=== PATIENT | male | born 1945 | race Caucasian/White ===

== ENCOUNTER 2021-06-09 18:01 | Observation (INO) | payer MEDICARE ==
--- NOTE | 2021-06-09 18:46 | ED ---
General Adult HPI - General Chief complaint: Syncope Stated complaint: Syncope Time Seen by Provider: 06/09/21 18:16 Source: patient Mode of arrival: wheelchair Limitations: no limitations - History of Present Illness Initial comments: Dictation was produced using [employer] dictation software. please excuse any grammatical, word or spelling errors. Chief Complaint: 76-year-old male presents to the emergency department for frequent episodes of syncope History of Present Illness: Is 76-year-old male presents emergency department for frequent episodes of syncope. Patient states that her last month he's been having multiple episodes of passing out. Patient states that physically comes from his legs and goes up and as soon as he knows it fossa the ground. Patient states he's unconscious for a couple seconds. Said several blackout episodes recently. Today he denies any headache. Yesterday he fell landing on his left side has right shoulder pain. Denies any numbness or any paresthesias. He's noticed that he had worsening swelling to his lower extremities. At the bedside he has no complaints at this time. He states he feels well. Call his primary care doctor today and was told to come to the emergency room. The ROS documented in this emergency department record has been reviewed and confirmed by me. Those systems with pertinent positive or negative responses have been documented in the HPI. All other systems are other negative and/or noncontributory. PHYSICAL EXAM: General Impression: Alert and oriented x3, not in acute distress HEENT: Normocephalic atraumatic, extra-ocular movements intact, pupils equal and reactive to light bilaterally, mucous membranes moist. Cardiovascular: Heart regular rate and rhythm Chest: Able to complete full sentences, no retractions, no tachypnea Abdomen: abdomen soft, non-tender, non-distended, no organomegaly Musculoskeletal: Pulses present and equal in all extremities, 2+ pitting edema to the bilateral lower extremities Motor: no focal deficits noted Neurological: CN II-XII grossly intact, no focal motor or sensory deficits noted Skin: Intact with no visualized rashes Psych: Normal affect and mood ED course: 76-year-old male presents emergency department for frequent syncopal episodes. Patient has a history of heart failure coronary artery disease. He r ecently had a stress test that was unremarkable according to his at the bedside. Patient is asymptomatic at this time. Vital signs are unremarkable. Laboratory evaluation obtained. CBC, metabolic panel is unremarkable. Cardiac enzymes negative. Brain natruretic peptide is normal. Computed tomography scan of the head and C-spine shows no acute processes. Shoulder x-rays negative. Patient reevaluated at the bedside at 7:54 PM found to be in stable medical condition. Disposition options were discussed with the patient. Given his age and comorbidities believe patient will benefit from observation admission for cardiac monitoring and cardiology consultation. Case discussed with Dr. Jett Tyson is went accept patient's care. EKG interpretation: Ventricular rate 72, sinus rhythm, DE interval 180, QS 162, QTc 457. No DE prolongation, no QTC prolongation, no ST or T-wave changes noted. Left bundle branch block. Overall this EKG is nonspecific. - Related Data Home Medications Medication Instructions Recorded Confirmed Fluorouracil [Efudex] 1 applic TOPICAL HS 06/09/21 06/09/21 Allergies Allergy/AdvReac Type Severity Reaction Status Date / Time No Known Allergies Allergy Verified 06/09/21 19:21 Review of Systems ROS Statement: Those systems with pertinent positive or pertinent negative responses have been documented in the HPI. ROS Other: All systems not noted in ROS Statement are negative. Past Medical History Past Medical History: Cancer Additional Past Medical History / Comment(s): skin cancer History of Any Multi-Drug Resistant Organisms: None Reported Past Surgical History: No Surgical Hx Reported Past Psychological History: No Psychological Hx Reported Smoking Status: Never smoker Past Alcohol Use History: None Reported Past Drug Use History: None Reported General Exam Limitations: no limitations Course Vital Signs 06/09/21 06/09/21 18:06 19:25 Temperature 98.4 F Pulse Rate 80 68 Respiratory 20 18 Rate Blood Pressure 175/93 148/87 O2 Sat by Pulse 96 97 Oximetry Medical Decision Making - Lab Data Result diagrams: 06/09/21 18:49 06/09/21 18:49 Lab Results 06/09/21 06/09/21 06/09/21 Range/Units 18:49 18:49 18:49 WBC 7.2 (3.8-10.6) k/uL RBC 5.34 (4.30-5.90) m/uL Hgb 15.7 (13.0-17.5) gm/dL Hct 47.0 (39.0-53.0) % MCV 88.0 (80.0-100.0) fL MCH 29.5 (25.0-35.0) pg MCHC 33.5 (31.0-37.0) g/dL RDW 13.9 (11.5-15.5) % Plt Count 228 (150-450) k/uL MPV 7.5 Neutrophils % 50 % Lymphocytes % 38 % Monocytes % 7 % Eosinophils % 1 % Basophils % 0 % Neutrophils # 3.6 (1.3-7.7) k/uL Lymphocytes # 2.7 (1.0-4.8) k/uL Monocytes # 0.5 (0-1.0) k/uL Eosinophils # 0.1 (0-0.7) k/uL Basophils # 0.0 (0-0.2) k/uL Sodium 138 (137-145) mmol/L Potassium 4.6 (3.5-5.1) mmol/L Chloride 106 (98-107) mmol/L Carbon Dioxide 25 (22-30) mmol/L Anion Gap 7 mmol/L BUN 21 H (9-20) mg/dL Creatinine 0.99 (0.66-1.25) mg/dL Est GFR (CKD-EPI)AfAm 85 (>60 ml/min/1.73 sqM) Est GFR (CKD-EPI)NonAf 73 (>60 ml/min/1.73 sqM) Glucose 101 H (74-99) mg/dL Calcium 8.7 (8.4-10.2) mg/dL Magnesium 2.2 (1.6-2.3) mg/dL Troponin I <0.012 (0.000-0.034) ng/mL NT-Pro-B Natriuret Pep pg/mL 06/09/21 Range/Units 18:49 WBC (3.8-10.6) k/uL RBC (4.30-5.90) m/uL Hgb (13.0-17.5) gm/dL Hct (39.0-53.0) % MCV (80.0-100.0) fL MCH (25.0-35.0) pg MCHC (31.0-37.0) g/dL RDW (11.5-15.5) % Plt Count (150-450) k/uL MPV Neutrophils % % Lymphocytes % % Monocytes % % Eosinophils % % Basophils % % Neutrophils # (1.3-7.7) k/uL Lymphocytes # (1.0-4.8) k/uL Monocytes # (0-1.0) k/uL Eosinophils # (0-0.7) k/uL Basophils # (0-0.2) k/uL Sodium (137-145) mmol/L Potassium (3.5-5.1) mmol/L Chloride (98-107) mmol/L Carbon Dioxide (22-30) mmol/L Anion Gap mmol/L BUN (9-20) mg/dL Creatinine (0.66-1.25) mg/dL Est GFR (CKD-EPI)AfAm (>60 ml/min/1.73 sqM) Est GFR (CKD-EPI)NonAf (>60 ml/min/1.73 sqM) Glucose (74-99) mg/dL Calcium (8.4-10.2) mg/dL Magnesium (1.6-2.3) mg/dL Troponin I (0.000-0.034) ng/mL NT-Pro-B Natriuret Pep 380 pg/mL Disposition Clinical Impression: Syncope Disposition: ADMITTED IP TO THIS HOSP Condition: Fair Referrals: Jett Tyson DO [Primary Care Provider] - 1-2 days
[2021-06-09 19:02] LABS: Basophils % (A) 0 %; Eosinophils # (A) 0.1 k/uL (0-0.7); Eosinophils % (A) 1 %; HGB 15.7 gm/dL (13.0-17.5); Lymphocytes # (A) 2.7 k/uL (1.0-4.8); Lymphocytes % (A) 38 %; MCH 29.5 pg (25.0-35.0); MCHC 33.5 g/dL (31.0-37.0); Mean Platelet Volume 7.5; Monocytes # (A) 0.5 k/uL (0-1.0); Monocytes % (A) 7 %; Neutrophils # (A) 3.6 k/uL (1.3-7.7); Neutrophils % (A) 50 %; Platelet Count 228 k/uL (150-450); RBC 5.34 m/uL (4.30-5.90); RDW 13.9 % (11.5-15.5); WBC 7.2 k/uL (3.8-10.6)
--- NOTE | 2021-06-09 19:04 | XR ---
Result: Clinical History: Pain. Comparison: None available. Technique: 3 views of the right shoulder. Findings: The bone mineralization is appropriate for age. No acute fracture or dislocation is seen. 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 The visualized lung is clear. Impression: No acute osseous abnormality.
[2021-06-09 19:11] LABS: Calcium 8.7 mg/dL (8.4-10.2); Magnesium 2.2 mg/dL (1.6-2.3); Potassium 4.6 mmol/L (3.5-5.1)
--- NOTE | 2021-06-09 19:29 | CT ---
EXAMINATION TYPE: CT brain misty neal DATE OF EXAM: 06/09/2021 COMPARISON: None available HISTORY: frequent falls CT DLP: 1446.3 mGycm Automated exposure control for dose reduction was used. TECHNIQUE: CT scan of the head and cervical spine are performed without contrast. FINDINGS: There is no acute intracranial hemorrhage, mass effect, or midline shift identified. The re is mild white matter disease and parenchymal volume loss. The ventricles and sulci are within norm al limits in size. The globes are intact and the visualized sinuses are clear. Cervical spine is visualized in its entirety from C1 through upper thoracic levels and demonstrates s atisfactory alignment without evidence of acute fracture or dislocation. There is multilevel moderate to severe disc degenerative changes with C7 superior endplate compression deformity. Prevertebral so ft tissue appears within normal limits. The C1-C2 articulation is unremarkable. IMPRESSION: No acute intracranial cervical spine abnormality. Senescent changes and cervical spondylosis.
[2021-06-09] MEDS ORDERED: NALOXONE 0.4 MG/ML 1 ML VIAL IV PRN (19:52)
[2021-06-09] MEDS ORDERED: SODIUM CHLORIDE 0.9% 1,000 ML IV SCH (20:00)
[2021-06-10] MEDS ORDERED: FUROSEMIDE 10 MG/ML 2 ML VIAL IV STA (08:49)
--- NOTE | 2021-06-10 09:37 | ECHOF ---
Referral Reason:syncope MEASUREMENTS -------- HEIGHT: 177.8 cm WEIGHT: 111.1 kg BP: RVIDd: 2.8 cm (< 3.3) IVSd: 1.6 cm (0.6 - 1.1) LVIDd: 4.4 cm (3.9 - 5.3) LVPWd: 1.7 cm (0.6 - 1.1) IVSs: 2.2 cm LVIDs: 2.5 cm LVPWs: 2.6 cm Ao Diam: 3.4 cm (2.0 - 3.7) AV Cusp: 1.8 cm (1.5 - 2.6) LA Diam: 3.0 cm (2.7 - 3.8) MV EXCURSION: 15.618 mm (> 18.000) MV EF SLOPE: 61 mm/s (70 - 150) EPSS: 0.6 cm MV E Baldemar: 0.91 m/s MV DecT: 187 ms MV A Baldemar: 0.54 m/s MV E/A Ratio: 1.70 RAP: 5.00 mmHg RVSP: 15.06 mmHg FINDINGS -------- This was a technically difficult study with suboptimal views. The left ventricular size is normal. There is moderate concentric left ventricular hypertrophy. O verall left ventricular systolic function is mildly impaired with, an EF between 45 - 50 %. The right ventricle is normal in size. The left atrial size is normal. The right atrial size is normal. xx ml of Lumason was utilized for enhancement of images. Aortic valve is trileaflet and is mildly thickened. The mitral valve is normal. There is trace mitral regurgitation. The tricuspid valve appears structurally normal. Mild tricuspid regurgitation present. Right vent ricular systolic pressure is normal at < 35 mmHg. There is no pulmonic regurgitation present. The aortic root size is normal. IVC Not well visulized. There is no pericardial effusion. CONCLUSIONS -------- 1. The left ventricular size is normal. 2. There is moderate concentric left ventricular hypertrophy. 3. Overall left ventricular systolic function is mildly impaired with, an EF between 45 - 50 %. 4. Aortic valve is trileaflet and is mildly thickened. 5. There is trace mitral regurgitation. 6. Mild tricuspid regurgitation present. 7. There is no pericardial effusion. PHILANTHROPY OFFICER: Tania Sanchez RUST
--- NOTE | 2021-06-10 10:35 | P.CRDCN ---
History of Present Illness Consult date: 06/10/21 History of present illness: HISTORY OF PRESENT ILLNESS: This is a 76-year-old male with a past medical history significant for hyperlipidemia and chronic lower extremity edema. Patient follows in the office with Dr. Millard. We have been asked to see the patient in consultation for syncope. Patient examined at the bedside. Patient presented to the hospital secondary to a few near syncopal/syncopal episodes at home. Patient reports he has had a few episodes where he thinks he is about to pass out. He is unsure if he actually lost consciousness or not. He denied any chest pain or pressure. Denies SOB. Currently denies dizziness or lightheadedness. * EKG reveals sinus mechanism with left bundle branch block * Laboratory data: WBC 7.2. Hemoglobin 15.7. Daily count 228. Sodium 138. Potassium 4.6. BUN 21. Creatinine 0.99. Troponin negative 1. ProBNP 390. * Current home cardiac medications include none * Echocardiogram obtained revealed ejection fraction 45-50%, trace MR, mild TR. Previous echo in 2018 revealed ejection fraction of 50% with mild TR * Patient underwent Lexiscan stress test in December 2017 which was negative for ischemia REVIEW OF SYSTEMS: At the time of my exam: CONSTITUTIONAL: Denies fever or chills. HEENT: Denies blurred vision, vision changes, or eye pain. Denies hemoptysis CARDIOVASCULAR: Denies chest pain. Denies orthopnea. Denies PND. Denies palpitations RESPIRATORY: Denies shortness of breath. GASTROINTESTINAL: Denies abdominal pain. Denies nausea or vomiting. HEMATOLOGIC: Denies bleeding disorders. GENITOURINARY: Denies any blood in urine. SKIN: Denies pruitis. Denies rash. PHYSICAL EXAM: VITAL SIGNS: Reviewed. GENERAL: Well-developed in no acute distress. HEENT: Head is normocephalic. Pupils are equal, round. Sclerae anicteric. Mucous membranes of the mouth are moist. Neck supple. No JVD or thyromegaly LUNGS: Respirations even and unlabored. Lungs essentially clear to auscultation bilaterally. HEART: Regular rate and rhythm. S1 and S2 heard. ABDOMEN: Soft. Nondistended. Nontender. EXTREMITIES: Normal range of motion. No clubbing or cyanosis. Peripheral pulses intact. 2-3+ lower extremity edema NEUROLOGIC: Awake and alert. Oriented x 3. ASSESSMENT: Syncope/near syncope History of hyperlipidemia, not on statin therapy Chronic lower extremity edema PLAN: 2-D echo obtained and reviewed Give 1 dose of IV Lasix 20 mg for lower extremity edema Check TSH Orthostatics checked and were negative Patient to receive 30 day event monitor Patient may be discharged home today and follow up outpatient with Dr. Millard We will sign off. Please reconsult if needed. Nurse practitioner note has been reviewed by physician. Signing provider agrees with the documented findings, assessment, and plan of care. Past Medical History Past Medical History: Cancer Additional Past Medical History / Comment(s): Skin cancer on face pt states that he uses a cream History of Any Multi-Drug Resistant Organisms: None Reported Past Surgical History: No Surgical Hx Reported Past Psychological History: No Psychological Hx Reported Smoking Status: Never smoker Past Alcohol Use History: None Reported Past Drug Use History: None Reported Medications and Allergies Home Medications Medication Instructions Recorded Confirmed Type Fluorouracil [Efudex] 1 applic TOPICAL HS 06/09/21 06/09/21 History Allergies Allergy/AdvReac Type Severity Reaction Status Date / Time No Known Allergies Allergy Verified 06/09/21 19:21 Physical Exam Vitals: Vital Signs Temp Pulse Pulse Pulse Pulse Resp BP 06/10/21 07:00 97.6 F 56 L 77 91 20 06/10/21 02:00 72 16 06/10/21 00:06 98.0 F 63 15 06/09/21 21:42 97.9 F 72 16 06/09/21 21:00 97.9 F 72 18 171/80 06/09/21 19:25 68 18 148/87 06/09/21 18:06 98.4 F 80 20 175/93 BP BP BP Pulse Ox 06/10/21 07:00 176/77 162/89 173/82 97 06/10/21 02:00 06/10/21 00:06 172/85 98 06/09/21 21:42 176/85 98 06/09/21 21:00 96 06/09/21 19:25 97 06/09/21 18:06 96 Intake and Output 06/09/21 06/10/21 06/10/21 22:59 06:59 14:59 Other: Voiding Method Toilet Weight 111.13 kg 111.13 kg Results 06/09/21 18:49 06/09/21 18:49 Cardiac Enzymes 06/09/21 Range/Units 18:49 Troponin I <0.012 (0.000-0.034) ng/mL CBC 06/09/21 Range/Units 18:49 WBC 7.2 (3.8-10.6) k/uL RBC 5.34 (4.30-5.90) m/uL Hgb 15.7 (13.0-17.5) gm/dL Hct 47.0 (39.0-53.0) % Plt Count 228 (150-450) k/uL Comprehensive Metabolic Panel 06/09/21 Range/Units 18:49 Sodium 138 (137-145) mmol/L Potassium 4.6 (3.5-5.1) mmol/L Chloride 106 (98-107) mmol/L Carbon Dioxide 25 (22-30) mmol/L BUN 21 H (9-20) mg/dL Creatinine 0.99 (0.66-1.25) mg/dL Glucose 101 H (74-99) mg/dL Calcium 8.7 (8.4-10.2) mg/dL Current Medications Generic Name Dose Route Start Last Admin Trade Name Freq PRN Reason Stop Dose Admin Sodium Chloride 1,000 mls @ 20 mls/hr 06/09/21 20:00 06/09/21 21:07 Saline 0.9% IV Not Given .Q24H JENNIE Naloxone HCl 0.2 mg 06/09/21 19:52 Naloxone 0.4 Mg/Ml 1 Ml Vial IV Q2M PRN Opioid Reversal Intake and Output 06/09/21 06/10/21 06/10/21 22:59 06:59 14:59 Other: Voiding Method Toilet Weight 111.13 kg 111.13 kg 06/09/21 18:49 06/09/21 18:49
[2021-06-10 14:30] VITALS: BP 152/82; PULSE 65; RESP 15; TEMP 97.9
== END 2021-06-10 16:11 | disposition home health service (06) ==
LOC: EC 18:01 → 6NMEDSUR 19:52
PROVIDERS: ADMIT Family Medicine; ATTEND Family Medicine
DX: R55 Syncope and collapse (principal); M19.011 Primary osteoarthritis, right shoulder; I25.10 Atherosclerotic heart disease of native coronary artery without angina pectoris; R60.0 Localized edema; I44.7 Left bundle-branch block, unspecified; M47.812 Spondylosis without myelopathy or radiculopathy, cervical region; E78.5 Hyperlipidemia, unspecified; I07.1 Rheumatic tricuspid insufficiency; Z79.899 Other long term (current) drug therapy; Z86.79 Personal history of other diseases of the circulatory system; Z85.828 Personal history of other malignant neoplasm of skin; W19.XXXA Unspecified fall, initial encounter; Y92.009 Unspecified place in unspecified non-institutional (private) residence as the place of occurrence of the external cause
CPT/HCPCS: 96374; 99285; 36415; 93005; 93270; 83880; 80048; 84443; 83735; 84484; 85025; 73030; 72125; 70450; G0378 ×2; C8929; J1940; Q9950; 93306

== ENCOUNTER 2021-06-20 12:56 | Day surgery (SDC) | payer MEDICARE ==
[2021-06-16 13:44] VITALS: BMI 33.2
[~2021-06-20 12:56] MED LIST: ceFAZolin 1 GM in SODIUM CHLORIDE 0.9% IRRIG BTL 250 ML IRRIGATION PRN
[2021-06-20] MEDS ORDERED: SODIUM CHLORIDE 0.9% 500 ML 500 ML IV ONE ×2 (13:05→19:56)
[2021-06-20] MEDS ORDERED: VANCOMYCIN 1,000 MG in SODIUM CHLORIDE 0.9% 250 ML IVPB STA (14:39)
[2021-06-20] MEDS ORDERED: LIDOCAINE 1% INJ 10MG/ML (20 ML MDV) ONE (17:38)
[2021-06-20] MEDS ORDERED: PROPOFOL 10 MG/ML 20 ML VIAL IV ONE (17:45)
[2021-06-20] MEDS ORDERED: HYDROmorphone (PF) 1 MG/ML ONE (17:45)
[2021-06-20] MEDS ORDERED: MIDAZOLAM 2 MG/2 ML VIAL ONE (17:45)
[2021-06-20] MEDS ORDERED: IOPAMIDOL-370 50ML BTL INJ ONE ×2 (18:08→19:55)
[2021-06-20] MEDS ORDERED: LIDOCAINE 1% INJ 10MG/ML (20 ML MDV) SQ ONE ×3 (18:39→19:00)
[2021-06-20] MEDS ORDERED: ACETAMINOPHEN TAB 325 MG TAB PO PRN (20:10)
--- NOTE | 2021-06-20 20:10 | P.EPPROC ---
- EP Procedure Note Electrophysiology Procedure Note: Diagnosis Bradycardia, standard pacemaker will result in RV pacing >40% Intermittent heart block Mild cardio myopathy Underlying left bundle branch block QRS width greater than 155 ms Procedure LV/ biventricular pacemaker implantation Details Patient was brought to the EP lab in a fasting state. Written informed consent was obtained prior to the procedure. Conscious sedation provided by anesthesia team IV antibiotics administered. Local anesthesia administered. A 4 cm incision made in the pectoral area. Subfascial pocket made. Venous access obtained Venous sheaths placed. Leads placed in the right heart Atrial lead position the right atrial appendage. [employer] coding specialist active fix Pacing threshold 0.8 V at 0.4 ms, P waves 4.7 mV, pacing impedance 590 ohms RV lead position in the RV apex. [employer] coding specialist active fix Pacing threshold 0.4 V at 0.4 ms, R waves 11 mV and pacing impedance 810 ohms 10 V test negative LV lead positioned in the LV vein. Standard [facility] quadripolar lead Pacing threshold 0.7 V at 0.4 ms, and 3-P4 pacing baseline and 30 ohms Biventricular pacemaker device connected to the leads and placed in the subfascial pocket [facility] [facility] [employer] MP Patient tolerated the procedure well without acute complications Pacemaker programmed to M3-P4 with an LV offset of 40 ms [employer]
--- NOTE | 2021-06-20 20:16 | P.PRLE ---
RE: John Silva Dear Jett Delcid Ricardo underwent a biventricular pacemaker for intermittent AV block associated with syncope He has an underlying left bundle branch block and mild cardio myopathy He will continue all his current medications and will follow with you as previously scheduled Thank you for entrusting me with the care of the patient Warm regards Sincerely Greg Cartagena
--- NOTE | 2021-06-20 20:17 | P.EPPROC ---
- EP Procedure Note Electrophysiology Procedure Note: Left upper extremity venogram TCC IV dye injected in the left arm Patent left subclavian and axillary vein Plan Proceed with biventricular pacemaker implantation
[2021-06-20] MEDS ORDERED: ACETAMINOPHEN IV (For NPO) 1,000 MG in EMPTY BAG 1 BAG IVPB ONE (21:30)
[2021-06-20] MEDS: SODIUM CHLORIDE 0.9% 1,000 ML IV SCH ×4 (22:11→23:54)
--- NOTE | 2021-06-21 07:59 | XR ---
EXAMINATION TYPE: XR chest 2V DATE OF EXAM: 06/21/2021 COMPARISON: NONE HISTORY: Pacemaker insertion. TECHNIQUE: Frontal and lateral views of the chest are obtained. FINDINGS: New triple lead pacemaker with leads projecting over the right atrium, right ventricle, and coronary sinus. There is no focal air space opacity, pleural effusion, or pneumothorax seen. The c ardiac silhouette size is within normal limits. The osseous structures are intact. IMPRESSION: As above
[2021-06-21 08:01] VITALS: RESP 18
[2021-06-21] MEDS ORDERED: ATORVASTATIN 20 MG TAB PO SCH (09:00)
[2021-06-21] MEDS ORDERED: FUROSEMIDE 20 MG TAB PO SCH (09:00)
[2021-06-21 12:54] VITALS: BP 148/79; PULSE 71; TEMP 97.5
--- NOTE | 2021-06-21 15:54 | P.DS ---
Providers Attending physician: Greg Cartagena Primary care physician: [facility] Course: Patient ambulating around the room No chest discomfort dizziness or lightheadedness The pacemaker site is healed well No hematoma no soakage Lungs are clear no rhonchi no crackles Normal heart sounds no S3 gallop Extremities warm No JVD Afebrile 97.5F, pulse rate in the 60s and 70s, blood pressure 146/73 mmHg Impression Syncope secondary to paroxysmal AV block Underlying mild cardio myopathy with a left bundle branch block pattern on ECG Status post biventricular pacemaker implantation yesterday Device is functioning normally Chest x-ray is within normal limits Patient received IV antibiotics Plan Discharge home and follow-up with Dr. Millard in a week in the device clinic Plan - Discharge Summary Discharge Rx Participant: No New Discharge Prescriptions: No Action Atorvastatin [Lipitor] 20 mg PO DAILY Furosemide [Lasix] 20 mg PO DAILY Discharge Medication List Atorvastatin [Lipitor] 20 mg PO DAILY 06/16/21 [History] Furosemide [Lasix] 20 mg PO DAILY 06/16/21 [History] Follow up Appointment(s)/Referral(s): James Millard MD [STAFF PHYSICIAN] - 1 Week (Device Clinic appointment 06/27 @ 10:30 am ) Patient Instructions/Handouts: Heart Failure (GEN), Pacemaker (GEN) Activity/Diet/Wound Care/Special Instructions: wear sling today 06/21/21 take off tomorrow but wear to bed for next 7 days, keep dressing dry for next 7 days if bathing must cover dressing with plastic. do not raise arm up above shoulder, head follow up as directed Discharge Disposition: HOME SELF-CARE
== END 2021-06-21 15:00 | disposition home or self-care (01) ==
LOC: CATHEP 12:56 → 6NMEDSUR 20:40 → CATHEP 06-21 15:00
PROVIDERS: ATTEND Internal Medicine Clinical Cardiac Electrophysiology
DX: I44.2 Atrioventricular block, complete (principal); R00.1 Bradycardia, unspecified; I42.8 Other cardiomyopathies; Z79.899 Other long term (current) drug therapy; R55 Syncope and collapse; R60.0 Localized edema; Z20.822 Contact with and (suspected) exposure to COVID-19; E78.2 Mixed hyperlipidemia; I44.7 Left bundle-branch block, unspecified; E78.5 Hyperlipidemia, unspecified; Z82.49 Family history of ischemic heart disease and other diseases of the circulatory system; Z98.890 Other specified postprocedural states; Z87.891 Personal history of nicotine dependence; Z85.828 Personal history of other malignant neoplasm of skin
CPT/HCPCS: 33225; 33208; 87635; 71046; C1769 ×4; C1892 ×2; C1730; C1887; C1898; C1900; C2621; J2250; J3370; J0690 ×2; J2001; J1170; J0131; J2704; Q9967

== ENCOUNTER 2022-08-19 18:20 | Inpatient (IN) | payer MEDICARE ==
[2022-08-19] MEDS ORDERED: SODIUM CHLORIDE 0.9% 1,000 ML IV ONE (18:40)
--- NOTE | 2022-08-19 18:47 | ED ---
General Adult HPI - General Stated complaint: Fall Time Seen by Provider: 08/19/22 18:23 Source: RN notes reviewed - History of Present Illness Initial comments: 77-year-old male with a past medical history significant fo hyperlipidemia presents to the emergency department via EMS with a chief complaint of fall. Patient reports that he fell 3 days ago and did not hit his head or lose consciousness. He reports that today he was getting up from his reclining chair in order to get the mail when his left hip was weak and he fell forward onto his face. He denies any loss of consciousness. He denies any anticoagulant use. Patient reports increased weakness. He denies any dizziness, lightheaded, headache, vision changes, vision loss, chest pain, shortness of breath, nausea, vomiting. He does report that he has had loose stools for the last few days however he denies any blood in them. He reports that the swelling in his feet has actually improved. EMS reports that he was found by the email marketing specialist as he heard a loud thud as he approached the door.. EMS reports that the patient has been crawling around for the past 5 days and attempt to take care of his who also has fallen. Per EMS the patient seemed more confused than normal there unsure of his baseline. It is unknown of his last known well. Patient is alert and oriented 2-3. - Related Data Home Medications Medication Instructions Recorded Confirmed Atorvastatin [Lipitor] 20 mg PO DAILY 06/16/21 08/19/22 Cephalexin [Keflex] 1,000 mg PO Q12HR 08/19/22 08/19/22 Furosemide [Lasix] 40 mg PO BID 08/19/22 08/19/22 Metoprolol Succinate (ER) [Toprol 25 mg PO DAILY 08/19/22 08/19/22 Xl] SILVER sulfADIAZINE Cream 1 applic TOPICAL DAILY 08/19/22 08/19/22 [Silvadene 1% Cream] Valsartan [Diovan] 80 mg PO DAILY 08/19/22 08/19/22 Allergies Allergy/AdvReac Type Severity Reaction Status Date / Time No Known Allergies Allergy Verified 08/19/22 20:25 Review of Systems ROS Statement: Those systems with pertinent positive or pertinent negative responses have been documented in the HPI. ROS Other: All systems not noted in ROS Statement are negative. Past Medical History Past Medical History: Cancer Additional Past Medical History / Comment(s): Skin cancer on face. Swelling in feet, calves and knees. History of Any Multi-Drug Resistant Organisms: None Reported Past Surgical History: Joint Replacement Additional Past Surgical History / Comment(s): right hip replacement, cataracts removed. Past Anesthesia/Blood Transfusion Reactions: No Reported Reaction Smoking Status: Former smoker - Past Family History Mother Family Medical History: No Reported History General Exam - General Exam Comments Initial Comments: General: Alert, in no acute distress Head: atraumatic normocephalic. Eyes PERRL, EOMI intact, mucous membranes moist Respiratory: Lungs clear to auscultation bilaterally Cardiovascular: Heart rate regular rate and rhythm Abdominal: Soft without guarding or rebound Extremities: Normal inspection with full range of motion and normal capillary re fill Neuroogic: alert and oriented 2-3, CN II-XII intact, Skin: warm dry and intact with normal color Course Vital Signs 08/19/22 08/19/22 08/20/22 20:52 22:59 00:02 Pulse Rate 63 62 60 Respiratory 18 18 18 Rate Blood Pressure 129/59 98/59 95/71 O2 Sat by Pulse 100 100 100 Oximetry - Reevaluation(s) Reevaluation #1: 08/19/22 18:46 Initial history and physical exam performed Reevaluation #2: 08/19/22 20:27 Notified of critical lab result. Troponin 0.134 Reevaluation #3: 08/19/22 22:[address] Russ, [facility] who agrees and accepts the patient for admission EKG Findings - EKG Comments: EKG Findings:: I interpreted the following: EKG performed at 19:09 rate 60 bpm and his electronically atrial and ventricularly paced. [place] interval 288, QRS duration 153, QT/QTc 518/518 Medical Decision Making - Medical Decision Making Was pt. sent in by a medical professional or institution (, PA, SUPERVISOR SHEARING, urgent care, hospital, or retirement...) When possible be specific @ -[No] Did you speak to anyone other than the patient for history (EMS, parent, family, police, friend...)? What history was obtained from this source @ -[No] Did you review nursing and triage notes (agree or disagree)? Why? @ -[I reviewed and agree with nursing and triage notes] Were old charts reviewed (outside hosp., previous admission, EMS record, old EKG, old radiological studies, urgent care reports/EKG's, retirement records)? Report findings @ -[No old charts were reviewed] Differential Diagnosis (chest pain, altered mental status, abdominal pain women, abdominal pain men, vaginal bleeding, weakness, fever, dyspnea, syncope, h eadache, dizziness, GI bleed, back pain, seizure, CVA, palpatations, mental health, musculoskeletal)? @ -[not applicable] EKG interpreted by me (3pts min.). @ -[As above] X-rays interpreted by me (1pt min.). @ -[None done] CT interpreted by me (1pt min.). @ -[None done] U/S interpreted by me (1pt. min.). @ -[None done] What testing was considered but not performed or refused? (CT, X-rays, U/S, labs)? Why? @ -[None] What meds were considered but not given or refused? Why? @ -[None] Did you discuss the management of the patient with other professionals (professionals i.e. , PA, SUPERVISOR SHEARING, lab, RT, psych nurse, social services specialist, prosthetic dentist, teacher, sergeant of officers, piano case maker)? Give summary @ -[No] Was smoking cessation discussed for >3mins.? @ -[No] Was critical care preformed (if so, how long)? @ -[No] Were there social determinants of health that impacted care today? How? (Homelessness, low income, unemployed, alcoholism, drug addiction, transportation, low edu. Level, literacy, decrease access to med. care, intermediate, rehab)? @ -[No] Was there de-escalation of care discussed even if they declined (Discuss DNR or withdrawal of care, Hospice)? DNR status @ -[No] What co-morbidities impacted this encounter? (DM, HTN, Smoking, COPD, CAD, Ca ncer, CVA, ARF, Chemo, Hep., AIDS, mental health diagnosis, sleep apnea, morbid obesity)? @ -[None] Was patient admitted / discharged? Hospital course, mention meds given and route, prescriptions, significant lab abnormalities, going to OR and other pertinent info. @ -Admission. This is a 77-year-old male who presents to the [facility] department with frequent falls. Patient had a thorough history and physical exam performed while in the ED. Heart rate regular rate and rhythm, lungs clear to auscultation bilaterally abdomen soft nontender patient is alert and oriented 3. No focal neuro deficits noted upon exam. Patient had lab work and and imaging performed which revealed: WBC 6.2, hemoglobin 11.2 chemistry unremarkable. 67, creatinine 3.01 creatinine kinase 1071, troponin 0.119 BNP 2860 urinalysis negative Patient had imaging performed which was all negative. I discussed the results in detail with the patient verbalized understanding and all questions were addressed. He is agreeable with the plan for admission. Case discussed with [facility] who agrees and accepts the patient for further observation. Case discussed with Dr. Marcano who agrees with POC. Undiagnosed new problem with uncertain prognosis? @ -[No] Drug Therapy requiring intensive monitoring for toxicity (Heparin, Nitro, Insulin, Cardizem)? @ -[No] Were any procedures done? @ -[No] Diagnosis/symptom? @ -Fall -Rhabdomyolysis - Elevated troponin - Acute kidney injury Acute, or Chronic, or Acute on Chronic? @ -Acute Uncomplicated (without systemic symptoms) or Complicated (systemic symptoms)? @ -Unomplicated Side effects of treatment? @ -[No] Exacerbation, Progression, or Severe Exacerbation? @ -[No] Poses a threat to life or bodily function? How? (Chest pain, [place], [place], pneumonia, PE, COPD, DKA, ARF, appy, cholecystitis, CVA, Diverticulitis, Homicidal, Suicidal, threat to staff... and all critical care pts) @ -low likelihood - Lab Data Result diagrams: 08/21/22 07:21 08/22/22 10:40 Lab Results 08/19/22 08/19/22 08/19/22 Range/Units 18:47 18:47 18:47 WBC 7.6 (3.8-10.6) k/uL RBC 4.21 L (4.30-5.90) m/uL Hgb 12.0 L (13.0-17.5) gm/dL Hct 35.3 L (39.0-53.0) % MCV 83.8 (80.0-100.0) fL MCH 28.5 (25.0-35.0) pg MCHC 34.0 (31.0-37.0) g/dL RDW 13.5 (11.5-15.5) % Plt Count 203 (150-450) k/uL MPV 8.5 Neutrophils % 67 % Lymphocytes % 23 % Monocytes % 8 % Eosinophils % 1 % Basophils % 0 % Neutrophils # 5.1 (1.3-7.7) k/uL Lymphocytes # 1.7 (1.0-4.8) k/uL Monocytes # 0.6 (0-1.0) k/uL Eosinophils # 0.1 (0-0.7) k/uL Basophils # 0.0 (0-0.2) k/uL PT 10.3 (9.0-12.0) sec INR 1.0 (<1.2) APTT 20.9 L (22.0-30.0) sec Sodium 139 (137-145) mmol/L Potassium 4.0 (3.5-5.1) mmol/L Chloride 103 (98-107) mmol/L Carbon Dioxide 23 (22-30) mmol/L Anion Gap 13 mmol/L BUN 78 H (9-20) mg/dL Creatinine 3.69 H (0.66-1.25) mg/dL Est GFR (CKD-EPI)AfAm 17 (>60 ml/min/1.73 sqM) Est GFR (CKD-EPI)NonAf 15 (>60 ml/min/1.73 sqM) Glucose 113 H (74-99) mg/dL POC Glucose (mg/dL) (70-110) mg/dL POC Glu Mechanical Intern ID Calcium 8.4 (8.4-10.2) mg/dL Total Bilirubin 2.8 H (0.2-1.3) mg/dL AST 109 H (17-59) U/L ALT 27 (4-49) U/L Alkaline Phosphatase 110 (38-126) U/L Creatine Kinase (55-170) U/L Troponin I (0.000-0.034) ng/mL Total Protein 6.3 (6.3-8.2) g/dL Albumin 3.3 L (3.5-5.0) g/dL Influenza Type A (PCR) (Not Detectd) Influenza Type B (PCR) (Not Detectd) RSV (PCR) (Not Detectd) SARS-CoV-2 (PCR) (Not Detectd) 08/19/22 08/19/22 08/19/22 Range/Units 18:47 18:47 18:57 WBC (3.8-10.6) k/uL RBC (4.30-5.90) m/uL Hgb (13.0-17.5) gm/dL Hct (39.0-53.0) % MCV (80.0-100.0) fL MCH (25.0-35.0) pg MCHC (31.0-37.0) g/dL RDW (11.5-15.5) % Plt Count (150-450) k/uL MPV Neutrophils % % Lymphocytes % % Monocytes % % Eosinophils % % Basophils % % Neutrophils # (1.3-7.7) k/uL Lymphocytes # (1.0-4.8) k/uL Monocytes # (0-1.0) k/uL Eosinophils # (0-0.7) k/uL Basophils # (0-0.2) k/uL PT (9.0-12.0) sec INR (<1.2) APTT (22.0-30.0) sec Sodium (137-145) mmol/L Potassium (3.5-5.1) mmol/L Chloride (98-107) mmol/L Carbon Dioxide (22-30) mmol/L Anion Gap mmol/L BUN (9-20) mg/dL Creatinine (0.66-1.25) mg/dL Est GFR (CKD-EPI)AfAm (>60 ml/min/1.73 sqM) Est GFR (CKD-EPI)NonAf (>60 ml/min/1.73 sqM) Glucose (74-99) mg/dL POC Glucose (mg/dL) 127 H (70-110) mg/dL POC Glu Mechanical Intern ID Macias Scot Calcium (8.4-10.2) mg/dL Total Bilirubin (0.2-1.3) mg/dL AST (17-59) U/L ALT (4-49) U/L Alkaline Phosphatase (38-126) U/L Creatine Kinase (55-170) U/L Troponin I 0.134 H* (0.000-0.034) ng/mL Total Protein (6.3-8.2) g/dL Albumin (3.5-5.0) g/dL Influenza Type A (PCR) Not Detected (Not Detectd) Influenza Type B (PCR) Not Detected (Not Detectd) RSV (PCR) Not Detected (Not Detectd) SARS-CoV-2 (PCR) Not Detected (Not Detectd) 08/19/22 08/19/22 Range/Units 21:07 21:07 WBC (3.8-10.6) k/uL RBC (4.30-5.90) m/uL Hgb (13.0-17.5) gm/dL Hct (39.0-53.0) % MCV (80.0-100.0) fL MCH (25.0-35.0) pg MCHC (31.0-37.0) g/dL RDW (11.5-15.5) % Plt Count (150-450) k/uL MPV Neutrophils % % Lymphocytes % % Monocytes % % Eosinophils % % Basophils % % Neutrophils # (1.3-7.7) k/uL Lymphocytes # (1.0-4.8) k/uL Monocytes # (0-1.0) k/uL Eosinophils # (0-0.7) k/uL Basophils # (0-0.2) k/uL PT (9.0-12.0) sec INR (<1.2) APTT (22.0-30.0) sec Sodium (137-145) mmol/L Potassium (3.5-5.1) mmol/L Chloride (98-107) mmol/L Carbon Dioxide (22-30) mmol/L Anion Gap mmol/L BUN (9-20) mg/dL Creatinine (0.66-1.25) mg/dL Est GFR (CKD-EPI)AfAm (>60 ml/min/1.73 sqM) Est GFR (CKD-EPI)NonAf (>60 ml/min/1.73 sqM) Glucose (74-99) mg/dL POC Glucose (mg/dL) (70-110) mg/dL POC Glu Mechanical Intern ID Calcium (8.4-10.2) mg/dL Total Bilirubin (0.2-1.3) mg/dL AST (17-59) U/L ALT (4-49) U/L Alkaline Phosphatase (38-126) U/L Creatine Kinase 1071 H* (55-170) U/L Troponin I 0.119 H* (0.000-0.034) ng/mL Total Protein (6.3-8.2) g/dL Albumin (3.5-5.0) g/dL Influenza Type A (PCR) (Not Detectd) Influenza Type B (PCR) (Not Detectd) RSV (PCR) (Not Detectd) SARS-CoV-2 (PCR) (Not Detectd) Disposition Clinical Impression: Fall, Elevated troponin, Weakness, DEISY (acute kidney injury) Disposition: ADMITTED IP TO THIS HOSP Condition: Fair Time of Disposition: 20:28
[2022-08-19 19:00] LABS: Glucose,Whole Blood 127 mg/dL (70-110)
[2022-08-19 19:29] LABS: Basophils % (A) 0 %; Eosinophils # (A) 0.1 k/uL (0-0.7); Eosinophils % (A) 1 %; HCT 35.3 % (39.0-53.0); Lymphocytes # (A) 1.7 k/uL (1.0-4.8); Lymphocytes % (A) 23 %; MCH 28.5 pg (25.0-35.0); MCV 83.8 fL (80.0-100.0); Mean Platelet Volume 8.5; Monocytes # (A) 0.6 k/uL (0-1.0); Monocytes % (A) 8 %; Neutrophils # (A) 5.1 k/uL (1.3-7.7); Neutrophils % (A) 67 %; Platelet Count 203 k/uL (150-450); RBC 4.21 m/uL (4.30-5.90); RDW 13.5 % (11.5-15.5); WBC 7.6 k/uL (3.8-10.6)
[2022-08-19 19:54] LABS: Albumin 3.3 g/dL (3.5-5.0); Calcium 8.4 mg/dL (8.4-10.2); Total Bilirubin 2.8 mg/dL (0.2-1.3); Total Protein 6.3 g/dL (6.3-8.2)
[2022-08-19 19:57] LABS: Partial Thromboplastin Time 20.9 sec (22.0-30.0)
[2022-08-19 20:03] LABS: Prothrombin Time 10.3 sec (9.0-12.0)
--- NOTE | 2022-08-19 20:26 | XR ---
EXAMINATION TYPE: XR chest 1V DATE OF EXAM: 08/19/2022 7:55 PM COMPARISON: Right shoulder radiographs 08/19/2022 TECHNIQUE: XR chest 1V . CLINICAL INDICATION:Male, 77 years old with history of fall; Patient is asymmetrically positioned and leaning to the right. FINDINGS: Lungs/Pleura: Low lung volumes are present. There is no evidence of pleural effusion, focal consolida tion, or pneumothorax. Pulmonary vascularity: Unremarkable. Heart/mediastinum: Cardiomediastinal silhouette is unremarkable. Three lead cardiac conduction device overlying the left hemithorax with lead tips projecting over the right ventricle, right atrium and c oronary sinus. Musculoskeletal: No acute osseous pathology as visualized. IMPRESSION: No acute cardiopulmonary disease/process.
[2022-08-19] MEDS ORDERED: SODIUM CHLORIDE 0.9% 500 ML 500 ML IV ONE (20:35)
--- NOTE | 2022-08-19 20:37 | CT ---
EXAMINATION TYPE: CT brain cspine wo con CT DLP: 1512.7 mGycm, Automated exposure control for dose reduction was used. DATE OF EXAM: 08/19/2022 8:15 PM COMPARISON: CT brain cervical spine 06/09/2021. CLINICAL INDICATION:Male, 77 years old with history of pain; pain after falling a couple days ago. TECHNIQUE: Brain: Multiple axial CT images of the brain were obtained without IV contrast. Cspine: Axial CT images from the skull base to the inferior aspect of T2 we obtained without intraven ous contrast. Coronal and sagittal reformatted images were also reviewed. FINDINGS: Brain: Extra-axial spaces: No abnormal extra-axial fluid collections. Ventricular system: Within normal limits Cerebral parenchyma: Cerebral atrophy. No acute intraparenchymal hemorrhage or mass effect. The carmencita fracisco of the ayala-white junctions are well differentiated. Scattered hypoattenuating areas are seen w ithin the white matter. Cerebellum: Unremarkable. Mass effect: No evidence of midline shift. Intracranial vasculature: Atherosclerotic calcifications of the intracranial vessels. Soft tissues: Right frontal scalp laceration with mild soft tissue swelling. Calvarium/osseous structures: No depressed skull fracture. Paranasal sinuses and mastoid air cells: Clear.Mastoid air cells are Clear Visualized orbits: The lenses are surgically removed from the globes. Cervical spine: Fracture: None. Osseous structures: Multilevel degenerative disc disease changes with endplate spurring and disc oste ophyte complex's. Mild uncovertebral and facet hypertrophy. Vertebral alignment: Straightening noted which is likely positional. Craniocervical and cervicothorac ic junctions are normally aligned. Spinal canal/Neural Foramina: No evidence of significant spinal canal narrowing. No evidence for sign ificant neural foraminal stenosis. Neck soft tissues: Prevertebral soft tissues are within normal limits. Other: The airway is patent. The lung apices are clear. IMPRESSION: 1. No acute intracranial process. 2. Right frontal scalp laceration. 3. Nonspecific white matter changes which likely relate to chronic microangiopathy. 4. Mild multilevel degenerative disc disease.
--- NOTE | 2022-08-19 20:42 | XR ---
EXAMINATION TYPE: XR knee complete RT DATE OF EXAM: 08/19/2022 7:55 PM INDICATION: Patient age:Male; 77 years old; Reason for study: R knee pain; PHH. COMPARISON: Right femur radiographs 08/19/2022 TECHNIQUE: The Right knee(s) was examined in 3 projections. Frontal, lateral and oblique. FINDINGS: No evidence of any acute osseous pathology, soft tissue swelling, or joint effusion is no maxwell. Tricompartmental osteoarthritis involving the femoral condyles, tibial plateau and patella. IMPRESSION: 1. No acute osseous pathology. 2. Mild tricompartmental osteoarthritic changes.
--- NOTE | 2022-08-19 20:42 | XR ---
EXAMINATION TYPE: XR shoulder complete RT DATE OF EXAM: 08/19/2022 7:55 PM INDICATION: Patient age:Male; 77 years old; Reason for study: Shoulder pain; COMPARISON: Right shoulder radiographs 06/09/2021 TECHNIQUE: The right shoulder was examined in AP, internally rotated and scapular Y projections. . FINDINGS: No evidence of acute osseous pathology, joint dislocation, or soft tissue swelling. Mild osteoarthrit is of the right shoulder joint. Moderate osteoarthritis of the acromioclavicular joint. The remaining portions of the visualized chest are unremarkable. IMPRESSION: No acute osseous pathology. Osteoarthritic changes of the right shoulder joint.
--- NOTE | 2022-08-19 20:43 | XR ---
EXAMINATION TYPE: XR pelvis AP view DATE OF EXAM: 08/19/2022 7:55 PM INDICATION: Patient age:Male; 77 years old; Reason for study: Fall; PHH. COMPARISON: Right femur radiographs 08/19/2022, TECHNIQUE: The pelvis was examined in AP projection. FINDINGS: No evidence of any acute osseous pathology, joint dislocation, or soft tissue swelling. Sev ere osteoarthritis of the hip joints bilaterally. Degenerative changes of the lower lumbar spine. IMPRESSION: No fracture or dislocation. Severe osteoarthritis of the hip joints.
--- NOTE | 2022-08-19 20:43 | XR ---
EXAMINATION TYPE: XR femur RT DATE OF EXAM: 08/19/2022 7:55 PM INDICATION: Patient age:Male; 77 years old; Reason for study: fall; COMPARISON: Pelvic radiograph 08/19/2022, right knee radiographs 08/19/2022 TECHNIQUE: The right femur was examined in AP and lateral projections projections. FINDINGS: No evidence of acute osseous pathology, joint dislocation, or soft tissue swelling. Severe osteoarthritis of the right hip joint and mild osteoarthritis of the knee. No evidence for knee join t effusion. IMPRESSION: 1 No acute osseous pathology. 2. Mild osteoarthritis of the right knee and severe osteoarthrosis of the right hip.
[2022-08-19] MEDS ORDERED: NALOXONE 0.4 MG/ML 1 ML VIAL IV PRN (22:54)
[2022-08-20] MEDS: SODIUM CHLORIDE 0.9% 1,000 ML IV SCH ×2 (00:42→16:54)
[2022-08-20 07:20] LABS: Appearance,Urine Clear (Clear); Bilirubin,Urine Negative (Negative); Blood,Urine Small (Negative); Color,Urine Yellow; Glucose,Urine (UA) Negative (Negative); Hyaline Casts,Urine 7 /lpf (0-2); Ketones,Urine Trace (Negative); Leukocyte Esterase,Urine Negative (Negative); Mucus,Urine Rare /hpf; Nitrite,Urine Negative (Negative); PH, Urine 5.5 (5.0-8.0); Protein,Urine Trace (Negative); RBC,Urine 5 /hpf (0-5); Specific Gravity,Urine 1.012 (1.001-1.035); Squamous Epithelial Cell,Urine <1 /hpf (0-4); WBC,Urine 2 /hpf (0-5)
[2022-08-20 09:18] LABS: Basophils % (A) 1 %; Eosinophils # (A) 0.1 k/uL (0-0.7); Eosinophils % (A) 1 %; HCT 33.7 % (39.0-53.0); HGB 11.2 gm/dL (13.0-17.5); Lymphocytes % (A) 32 %; MCH 28.1 pg (25.0-35.0); MCHC 33.3 g/dL (31.0-37.0); MCV 84.5 fL (80.0-100.0); Mean Platelet Volume 8.1; Monocytes # (A) 0.5 k/uL (0-1.0); Monocytes % (A) 8 %; Neutrophils # (A) 3.5 k/uL (1.3-7.7); Neutrophils % (A) 56 %; Platelet Count 166 k/uL (150-450); RDW 13.6 % (11.5-15.5); WBC 6.2 k/uL (3.8-10.6)
[2022-08-20 09:30] LABS: Calcium 7.8 mg/dL (8.4-10.2); Magnesium 2.3 mg/dL (1.6-2.3); Potassium 4.1 mmol/L (3.5-5.1)
--- NOTE | 2022-08-20 10:51 | P.NPCON ---
History of Present Illness - Reason for Consult acute renal failure, chronic renal failure - History of Present Illness Reason for consultation: Acute kidney injury on chronic kidney disease History of present illness: Patient is a 77-year-old male seen in consultation for acute kidney injury on chronic kidney disease. Patient's creatinine since August 2021 to May 2022 was in the range of 1.2-1.6. Earlier this month on 08/02/2022 was 1.9. This admission creatinine was 3.69 and is 3.01 today. Patient presented to the hospital by the EMS after he sustained a fall. Patient believes he got up too fast and fell. He denies losing consciousness. He does admit to weakness. He denies any dizziness chest pain or shortness of breath. Patient's CK levels was elevated at 1071 on admission. He's currently receiving IV fluids. He was on diuretics at home as well as Diovan which is currently held. Additionally patient states he was started on antibiotics for lotion be cellulitis and has taken about 3 doses. He denies use of nonsteroidals. Denies history of diabetes. Denies history of coronary artery disease but states that he does have a pacemaker. He did have 1 episode of diarrhea but none now. No fever or chills. He does not follow with nephrology outpatient. Patient's blood pr essure was as low as 95/71 this admission but stable at 118/61 this morning. Vital signs are stable. General: No acute distress. HEENT: Head exam is unremarkable. LUNGS: No audible rhonchi or wheezes. HEART: Rate and Rhythm are regular. ABDOMEN: Soft, nontender, obese. EXTREMITITES: Lower extremity erythema noted. Trace edema. No drainage. Past Medical History Past Medical History: Cancer, Heart Failure, Hyperlipidemia, Hypertension Additional Past Medical History / Comment(s): Skin cancer on face. Swelling in feet, calves and knees. History of Any Multi-Drug Resistant Organisms: None Reported Past Surgical History: Joint Replacement, Pacemaker Additional Past Surgical History / Comment(s): right hip replacement, cataracts removed. Past Anesthesia/Blood Transfusion Reactions: No Reported Reaction Type of Cardiac Device: Permanent Pacemaker Device Placement Date:: 06/20/21 Past Psychological History: No Psychological Hx Reported Smoking Status: Former smoker Past Alcohol Use History: None Reported Additional Past Alcohol Use History / Comment(s): Smoked from age [age]. Past Drug Use History: None Reported - Past Family History Mother Family Medical History: No Reported History Medications and Allergies Home Medications Medication Instructions Recorded Confirmed Type Atorvastatin [Lipitor] 20 mg PO DAILY 06/16/21 08/19/22 History Cephalexin [Keflex] 1,000 mg PO Q12HR 08/19/22 08/19/22 History Furosemide [Lasix] 40 mg PO BID 08/19/22 08/19/22 History Metoprolol Succinate (ER) [Toprol 25 mg PO DAILY 08/19/22 08/19/22 History Xl] SILVER sulfADIAZINE Cream 1 applic TOPICAL DAILY 08/19/22 08/19/22 History [Silvadene 1% Cream] Valsartan [Diovan] 80 mg PO DAILY 08/19/22 08/19/22 History Allergies Allergy/AdvReac Type Severity Reaction Status Date / Time No Known Allergies Allergy Verified 08/19/22 20:25 Physical Exam Vitals: Vital Signs Temp Pulse Pulse Resp BP BP Pulse Ox 08/20/22 09:26 97 08/20/22 08:00 98.0 F 73 18 118/61 98 08/20/22 03:44 97.7 F 68 18 116/51 97 08/20/22 00:30 97.5 F L 60 16 139/53 99 08/20/22 00:02 60 18 95/71 100 08/19/22 22:59 62 18 98/59 100 08/19/22 20:52 63 18 129/59 100 Intake and Output 08/19/22 08/20/22 08/20/22 22:59 06:59 14:59 Output Total 300 Balance -300 Output: Urine 300 Other: # Voids 1 Weight 100.698 kg 95.1 kg Results - Lab Results Most recent lab results Calcium 7.8 mg/dL (8.4-10.2) L 08/20/22 08:26 Magnesium 2.3 mg/dL (1.6-2.3) 08/20/22 08:26 08/20/22 08:26 08/20/22 08:26 Assessment and Plan Plan: Assessment: 1. Acute kidney injury mostly prerenal secondary to hypotension and further worsened with the use of Lasix and Diovan. Creatinine 3.16 on admission and 3.01 today. 2. Chronic kidney disease stage III with creatinine in the range of 1.2-1.6 since August 2021. UA with trace protein. 3. Mild rhabdomyolysis secondary to fall. 4. Hypertension with chronic kidney disease. Controlled. 5. Lower extremity cellulitis. Plan: Maintain IV fluids. Continue to hold antihypertensives and diuretics. Check orthostatic vital signs. Check renal ultrasound. Repeat CK level. Avoid nephrotoxins. Continue to monitor renal function and urine output. Thank you for the consultation. I will continue to follow the patient with you during his hospital stay.
--- NOTE | 2022-08-20 13:17 | P.HPIM ---
History of Present Illness H&P Date: 08/20/22 History of present illness; patient is a 77-year-old gentleman with past medical history significant for hyperlipidemia who presented to The ER after a fall. Patient has been falling recently. Patient stated that he was getting up from a reclining chair in order to get mail when he felt that his left leg was weak and he fell forward. Patient was found by mail processing associate and he called the EMS. EMS reported that patient has been so weak that he has been crawling around on the floor. Patient also takes care of his . Initial workup in the ER showed white count 7.6, hemoglobin 12, platelet count 203, sodium 139, potassium 4, BUN 78, creatinine 3.69, CK was 1071 CT head showed no acute intracranial process, showed right frontal scalp laceration X-ray pelvis was Negative for any fracture or dislocation X-ray right shoulder was negative for any pathology REVIEW OF SYSTEMS: CONSTITUTIONAL: No fever, no malaise, no fatigue. Complaining of lethargy and weakness HEENT: No recent visual problems or hearing problems. Denied any sore throat. CARDIOVASCULAR: No chest pain, orthopnea, PND, no palpitations, no syncope. PULMONARY: No shortness of breath, no cough, no hemoptysis. GASTROINTESTINAL: No diarrhea, no nausea, no vomiting, no abdominal pain. NEUROLOGICAL: No headaches, no weakness, no numbness. HEMATOLOGICAL: Denies any bleeding or petechiae. GENITOURINARY: Denies any burning micturition, frequency, or urgency. MUSCULOSKELETAL/RHEUMATOLOGICAL: Denies any joint pain, swelling, or any muscle pain. ENDOCRINE: Denies any polyuria or polydipsia. The rest of the 14-point review of systems is negative. PHYSICAL EXAMINATION: GENERAL: The patient is alert and oriented x3, not in any acute distress. Well developed, well nourished. HEENT: Pupils are round and equally reacting to light. EOMI. No scleral icterus. No conjunctival pallor. Normocephalic, atraumatic. No pharyngeal erythema. No thyromegaly. CARDIOVASCULAR: S1 and S2 present. No murmurs, rubs, or gallops. PULMONARY: Chest is clear to auscultation, no wheezing or crackles. ABDOMEN: Soft, nontender, nondistended, normoactive bowel sounds. No palpable organomegaly. MUSCULOSKELETAL: No joint swelling or deformity. EXTREMITIES: Chronic venous stasis changes of lower extremities bilaterally NEUROLOGICAL: Gross neurological examination did not reveal any focal deficits. SKIN: No rashes. Assessment and plan Fall Acute metabolic encephalopathy Rhabdomyolysis Acute kidney injury Elevated troponin Hypertension Plan; Monitor vital signs Monitor CBC Monitor CMP Avoid nephrotoxic agents Avoid hypotension Continue IV fluids Ordered ultrasound of kidneys Consult nephrology Consult cardiology Past Medical History Past Medical History: Cancer, Heart Failure, Hyperlipidemia, Hypertension Additional Past Medical History / Comment(s): Skin cancer on face. Swelling in feet, calves and knees. History of Any Multi-Drug Resistant Organisms: None Reported Past Surgical History: Joint Replacement, Pacemaker Additional Past Surgical History / Comment(s): right hip replacement, cataracts removed. Past Anesthesia/Blood Transfusion Reactions: No Reported Reaction Type of Cardiac Device: Permanent Pacemaker Device Placement Date:: 06/20/21 Past Psychological History: No Psychological Hx Reported Smoking Status: Former smoker Past Alcohol Use History: None Reported Additional Past Alcohol Use History / Comment(s): Smoked from age [age]. Past Drug Use History: None Reported - Past Family History Mother Family Medical History: No Reported History Medications and Allergies Home Medications Medication Instructions Recorded Confirmed Type Atorvastatin [Lipitor] 20 mg PO DAILY 06/16/21 08/19/22 History Cephalexin [Keflex] 1,000 mg PO Q12HR 08/19/22 08/19/22 History Furosemide [Lasix] 40 mg PO BID 08/19/22 08/19/22 History Metoprolol Succinate (ER) [Toprol 25 mg PO DAILY 08/19/22 08/19/22 History Xl] SILVER sulfADIAZINE Cream 1 applic TOPICAL DAILY 08/19/22 08/19/22 History [Silvadene 1% Cream] Valsartan [Diovan] 80 mg PO DAILY 08/19/22 08/19/22 History Allergies Allergy/AdvReac Type Severity Reaction Status Date / Time No Known Allergies Allergy Verified 08/19/22 20:25 Physical Exam Vitals: Vital Signs Temp Pulse Pulse Resp BP BP Pulse Ox 08/20/22 09:26 97 08/20/22 08:00 98.0 F 73 18 118/61 98 08/20/22 03:44 97.7 F 68 18 116/51 97 08/20/22 00:30 97.5 F L 60 16 139/53 99 08/20/22 00:02 60 18 95/71 100 08/19/22 22:59 62 18 98/59 100 08/19/22 20:52 63 18 129/59 100 Intake and Output 08/19/22 08/20/22 08/20/22 22:59 06:59 14:59 Output Total 300 Balance -300 Output: Urine 300 Other: # Voids 1 Weight 100.698 kg 95.1 kg Results CBC & Chem 7: 08/20/22 08:26 08/20/22 08:26 Labs: Abnormal Lab Results - Last 24 Hours (Table) 08/19/22 08/19/22 08/19/22 Range/Units 18:47 18:47 18:47 RBC 4.21 L (4.30-5.90) m/uL Hgb 12.0 L (13.0-17.5) gm/dL Hct 35.3 L (39.0-53.0) % APTT 20.9 L (22.0-30.0) sec Chloride (98-107) mmol/L BUN 78 H (9-20) mg/dL Creatinine 3.69 H (0.66-1.25) mg/dL Glucose 113 H (74-99) mg/dL POC Glucose (mg/dL) (70-110) mg/dL Calcium (8.4-10.2) mg/dL Total Bilirubin 2.8 H (0.2-1.3) mg/dL AST 109 H (17-59) U/L Creatine Kinase (55-170) U/L Troponin I (0.000-0.034) ng/mL Albumin 3.3 L (3.5-5.0) g/dL Urine Protein (Negative) Urine Ketones (Negative) Urine Blood (Negative) Hyaline Casts (0-2) /lpf Urine Mucus (None) /hpf 08/19/22 08/19/22 08/19/22 Range/Units 18:47 18:57 21:07 RBC (4.30-5.90) m/uL Hgb (13.0-17.5) gm/dL Hct (39.0-53.0) % APTT (22.0-30.0) sec Chloride (98-107) mmol/L BUN (9-20) mg/dL Creatinine (0.66-1.25) mg/dL Glucose (74-99) mg/dL POC Glucose (mg/dL) 127 H (70-110) mg/dL Calcium (8.4-10.2) mg/dL Total Bilirubin (0.2-1.3) mg/dL AST (17-59) U/L Creatine Kinase (55-170) U/L Troponin I 0.134 H* 0.119 H* (0.000-0.034) ng/mL Albumin (3.5-5.0) g/dL Urine Protein (Negative) Urine Ketones (Negative) Urine Blood (Negative) Hyaline Casts (0-2) /lpf Urine Mucus (None) /hpf 08/19/22 08/20/22 08/20/22 Range/Units 21:07 06:00 08:26 RBC 4.00 L (4.30-5.90) m/uL Hgb 11.2 L (13.0-17.5) gm/dL Hct 33.7 L (39.0-53.0) % APTT (22.0-30.0) sec Chloride (98-107) mmol/L BUN (9-20) mg/dL Creatinine (0.66-1.25) mg/dL Glucose (74-99) mg/dL POC Glucose (mg/dL) (70-110) mg/dL Calcium (8.4-10.2) mg/dL Total Bilirubin (0.2-1.3) mg/dL AST (17-59) U/L Creatine Kinase 1071 H* (55-170) U/L Troponin I (0.000-0.034) ng/mL Albumin (3.5-5.0) g/dL Urine Protein Trace H (Negative) Urine Ketones Trace H (Negative) Urine Blood Small H (Negative) Hyaline Casts 7 H (0-2) /lpf Urine Mucus Rare H (None) /hpf 08/20/22 Range/Units 08:26 RBC (4.30-5.90) m/uL Hgb (13.0-17.5) gm/dL Hct (39.0-53.0) % APTT (22.0-30.0) sec Chloride 109 H (98-107) mmol/L BUN 67 H (9-20) mg/dL Creatinine 3.01 H (0.66-1.25) mg/dL Glucose (74-99) mg/dL POC Glucose (mg/dL) (70-110) mg/dL Calcium 7.8 L (8.4-10.2) mg/dL Total Bilirubin (0.2-1.3) mg/dL AST (17-59) U/L Creatine Kinase (55-170) U/L Troponin I (0.000-0.034) ng/mL Albumin (3.5-5.0) g/dL Urine Protein (Negative) Urine Ketones (Negative) Urine Blood (Negative) Hyaline Casts (0-2) /lpf Urine Mucus (None) /hpf Thrombosis Risk Factor Assmnt - Choose All That Apply Any of the Below Risk Factors Present?: Yes Each Factor Represents 1 point: Medical pt on bed rest, Obesity (BMI >25), S wollen legs (current) Each Risk Factor Represents 3 Points: Age 75 years or older Other congenital or acquired thrombophilia - If yes, enter type in comment: No Thrombosis Risk Factor Assessment Total Risk Factor Score: 6 Thrombosis Risk Factor Assessment Level: High Risk
--- NOTE | 2022-08-20 13:38 | P.CRDCN ---
History of Present Illness Consult date: 08/20/22 Reason for Consult (text): Elevated troponin, lower extremity edema History of present illness: HISTORY OF PRESENT ILLNESS: This is a 77-year-old male patient of Dr. Millard with a past medical history significant for nonischemic cardiomyopathy, hypertension, hyperlipidemia, permanent pacemaker and chronic lower extremity edema. We have been asked to see the patient in consultation for elevated troponins and lower extremity edema. Patient gives history that he had a fall and spent at least a couple days on the floor. He states he has a bad hip and he jumped up out of the chair to fast and ended up falling forward after taking 2 steps. He states he blacked out for 2 seconds and he did hit his head on the couch. He apparently was crawling around the house for a couple of days before someone was able to find him. He denies having any chest pain. He did have one episode of diarrhea before the fall. His and also had a fall several days before him and had also been on the floor for a long period of time. Patient was last seen in the office on July 31 at which time he was noted to have moderate lower extremity edema with venous stasis ulcers. Patient states that he has been using Silvadene cream and these have healed. He states the size of his lower extremities are half the size they were previously. Patient's next appointment with Dr. Millard is scheduled for August 30. Blood pressure is currently 118/61 heart rate in the 60s and 80s. Pulse ox 90% on room air. Patient is status post 1-1/2 L of IV fluid. EKG reveals paced rhythm Chest x-ray no acute findings Laboratory data: WBC 6.2, hemoglobin 11.2, platelet count 166. Sodium 140, potassium 4.1, chloride 109. CO2 24, initial BUN 78 currently at 67, creatinine 3.69 and now 3.01. Magnesium 2.3. ProBNP 2860. Troponin is 0.134 and 0.119. CK 1071. Influenza A, influenza B, RSV and Covid 19 not detected. Current home cardiac medications: Atorvastatin 20 mg daily, Lasix 40 mg twice daily, Toprol-XL 25 mg daily, valsartan 80 mg daily Echocardiogram 07/2022 revealed normal EF, mild MR, mild TR, estimated RVSP 32 mmHg Patient underwent Lexiscan stress test in July 2021 revealed EF of 68% and was negative for ischemia REVIEW OF SYSTEMS: At the time of my exam: CONSTITUTIONAL: Denies fever or chills. HEENT: Denies blurred vision, vision changes, or eye pain. Denies hemoptysis CARDIOVASCULAR: Denies chest pain. Denies orthopnea. Denies PND. Denies palpitations RESPIRATORY: Denies shortness of breath. GASTROINTESTINAL: Denies abdominal pain. Denies nausea or vomiting. HEMATOLOGIC: Denies bleeding disorders. GENITOURINARY: Denies any blood in urine. SKIN: Denies pruitis. Denies rash. PHYSICAL EXAM: VITAL SIGNS: Reviewed. GENERAL: Well-developed in no acute distress. HEENT: Small laceration to the right forehead. Pupils are equal, round. Sclerae anicteric. Mucous membranes of the mouth are moist. Neck supple. No JVD or thyromegaly LUNGS: Respirations even and unlabored. Lungs essentially clear to auscultation bilaterally. HEART: Regular rate and rhythm. S1 and S2 heard. 2/6 systolic murmur ABDOMEN: Soft.Nontender. EXTREMITIES: Large bilateral lower extremities, trace edema, no active drainage /wounds NEUROLOGIC: Awake and alert. Oriented x 3. ASSESSMENT: Elevated troponin most likely due to acute kidney injury Acute kidney injury Chronic kidney disease stage III Rhabdomyolysis secondary to fall Nonischemic cardiomyopathy with recovered EF Hypertension Hyperlipidemia Current pacemaker Chronic lower extremity edema and previous stasis ulcers healed PLAN: Resume patient's home cardiac medications except for valsartan and Lasix due to acute kidney injury Monitor electrolytes and renal function No plan for further cardiac workup at this time. Further recommendations as patient progresses Thank you kindly for this consultation. Nurse practitioner note has been reviewed, I agree with the documented findings and plan of care. Patient was seen and examined. Past Medical History Past Medical History: Cancer, Heart Failure, Hyperlipidemia, Hypertension Additional Past Medical History / Comment(s): Skin cancer on face. Swelling in feet, calves and knees. History of Any Multi-Drug Resistant Organisms: None Reported Past Surgical History: Joint Replacement, Pacemaker Additional Past Surgical History / Comment(s): right hip replacement, cataracts removed. Past Anesthesia/Blood Transfusion Reactions: No Reported Reaction Type of Cardiac Device: Permanent Pacemaker Device Placement Date:: 06/20/21 Past Psychological History: No Psychological Hx Reported Smoking Status: Former smoker Past Alcohol Use History: None Reported Additional Past Alcohol Use History / Comment(s): Smoked from age [age]. Past Drug Use History: None Reported - Past Family History Mother Family Medical History: No Reported History Medications and Allergies Home Medications Medication Instructions Recorded Confirmed Type Atorvastatin [Lipitor] 20 mg PO DAILY 06/16/21 08/19/22 History Cephalexin [Keflex] 1,000 mg PO Q12HR 08/19/22 08/19/22 History Furosemide [Lasix] 40 mg PO BID 08/19/22 08/19/22 History Metoprolol Succinate (ER) [Toprol 25 mg PO DAILY 08/19/22 08/19/22 History Xl] SILVER sulfADIAZINE Cream 1 applic TOPICAL DAILY 08/19/22 08/19/22 History [Silvadene 1% Cream] Valsartan [Diovan] 80 mg PO DAILY 08/19/22 08/19/22 History Allergies Allergy/AdvReac Type Severity Reaction Status Date / Time No Known Allergies Allergy Verified 08/19/22 20:25 Physical Exam Vitals: Vital Signs Temp Pulse Pulse Resp BP BP Pulse Ox 08/20/22 03:44 97.7 F 68 18 116/51 97 08/20/22 00:30 97.5 F L 60 16 139/53 99 08/20/22 00:02 60 18 95/71 100 08/19/22 22:59 62 18 98/59 100 08/19/22 20:52 63 18 129/59 100 Intake and Output 08/19/22 08/20/22 08/20/22 22:59 06:59 14:59 Output Total 300 Balance -300 Output: Urine 300 Other: # Voids 1 Weight 100.698 kg 95.1 kg Results 08/20/22 08:26 08/20/22 08:26 Cardiac Enzymes 08/19/22 08/19/22 08/19/22 Range/Units 18:47 18:47 21:07 AST 109 H (17-59) U/L Troponin I 0.134 H* 0.119 H* (0.000-0.034) ng/mL Coagulation 08/19/22 Range/Units 18:47 PT 10.3 (9.0-12.0) sec APTT 20.9 L (22.0-30.0) sec CBC 08/19/22 Range/Units 18:47 WBC 7.6 (3.8-10.6) k/uL RBC 4.21 L (4.30-5.90) m/uL Hgb 12.0 L (13.0-17.5) gm/dL Hct 35.3 L (39.0-53.0) % Plt Count 203 (150-450) k/uL Comprehensive Metabolic Panel 08/19/22 Range/Units 18:47 Sodium 139 (137-145) mmol/L Potassium 4.0 (3.5-5.1) mmol/L Chloride 103 (98-107) mmol/L Carbon Dioxide 23 (22-30) mmol/L BUN 78 H (9-20) mg/dL Creatinine 3.69 H (0.66-1.25) mg/dL Glucose 113 H (74-99) mg/dL Calcium 8.4 (8.4-10.2) mg/dL AST 109 H (17-59) U/L ALT 27 (4-49) U/L Alkaline Phosphatase 110 (38-126) U/L Total Protein 6.3 (6.3-8.2) g/dL Albumin 3.3 L (3.5-5.0) g/dL Current Medications Generic Name Dose Route Start Last Admin Trade Name Freq PRN Reason Stop Dose Admin Acetaminophen 650 mg 08/19/22 22:54 Acetaminophen Tab 325 Mg Tab PO Q6HR PRN Mild Pain or Fever > 100.5 Sodium Chloride 1,000 mls @ 75 mls/hr 08/19/22 23:00 08/20/22 00:42 Saline 0.9% IV 75 mls/hr .[id number] JENNIE Administration Naloxone HCl 0.2 mg 08/19/22 22:54 Naloxone 0.4 Mg/Ml 1 Ml Vial IV Q2M PRN Opioid Reversal Intake and Output 08/19/22 08/20/22 08/20/22 22:59 06:59 14:59 Output Total 300 Balance -300 Output: Urine 300 Other: # Voids 1 Weight 100.698 kg 95.1 kg 08/19/22 18:47 08/19/22 18:47
--- NOTE | 2022-08-20 14:32 | US ---
EXAMINATION TYPE: US kidneys/renal and bladder DATE OF EXAM: 08/20/2022 Exam done portable COMPARISON: NONE CLINICAL INDICATION: Male, 77 years old with history of Acute kidney injury; EXAM MEASUREMENTS: Right Kidney: 10.8 x 5.5 x 4.9 cm Left Kidney: 11.1 x 5.4 x 5.6 cm Difficult and limited study due to patient body habitus Right Kidney: No hydronephrosis or masses seen Left Kidney: No hydronephrosis or masses seen Bladder: wnl Bilateral Jets seen: no There is no evidence for hydronephrosis at this point in time. No nephrolithiasis is seen. No cory s are identified. Increased cortical echogenicity and cortical thinning in the left kidney. The urin flakita bladder is adequately distended. Bilateral ureteral jets are not seen. IMPRESSION: No hydronephrosis is seen bilaterally.
[2022-08-21] MEDS: SODIUM CHLORIDE 0.9% 1,000 ML IV SCH ×2 (02:06→21:09)
[2022-08-21 07:49] LABS: Basophils % (A) 0 %; Eosinophils # (A) 0.1 k/uL (0-0.7); Eosinophils % (A) 2 %; HCT 35.4 % (39.0-53.0); HGB 11.6 gm/dL (13.0-17.5); Lymphocytes # (A) 1.6 k/uL (1.0-4.8); Lymphocytes % (A) 29 %; MCH 27.7 pg (25.0-35.0); MCHC 32.7 g/dL (31.0-37.0); MCV 84.7 fL (80.0-100.0); Mean Platelet Volume 8.2; Monocytes # (A) 0.4 k/uL (0-1.0); Monocytes % (A) 7 %; Neutrophils # (A) 3.5 k/uL (1.3-7.7); Neutrophils % (A) 60 %; Platelet Count 176 k/uL (150-450); RBC 4.18 m/uL (4.30-5.90); RDW 13.6 % (11.5-15.5); WBC 5.8 k/uL (3.8-10.6)
[2022-08-21 08:06] LABS: Magnesium 2.1 mg/dL (1.6-2.3); Potassium 3.9 mmol/L (3.5-5.1); Total Bilirubin 1.3 mg/dL (0.2-1.3); Total Protein 5.8 g/dL (6.3-8.2)
[2022-08-21] MEDS: METOPROLOL SUCCINATE (ER) 25 MG TAB.ER.24H PO SCH (08:11)
[2022-08-21] MEDS: ATORVASTATIN 20 MG TAB PO SCH (08:11)
[2022-08-21] MEDS: ACETAMINOPHEN TAB 325 MG TAB PO PRN ×2 (08:15→23:55)
--- NOTE | 2022-08-21 10:34 | P.PN ---
Subjective Progress Note Date: 08/21/22 HISTORY OF PRESENT ILLNESS: This is a 77-year-old male patient of Dr. Millard with a past medical history significant for nonischemic cardiomyopathy, hypertension, hyperlipidemia, permanent pacemaker and chronic lower extremity edema. We have been asked to see the patient in consultation for elevated troponins and lower extremity edema. Patient gives history that he had a fall and spent at least a couple days on the floor. He states he has a bad hip and he jumped up out of the chair to fast and ended up falling forward after taking 2 steps. He states he blacked out for 2 seconds and he did hit his head on the couch. He apparently was crawling around the house for a couple of days before someone was able to find him. He denies having any chest pain. He did have one episode of diarrhea before the fall. His and also had a fall several days before him and had also been on the floor for a long period of time. Patient was last seen in the office on July 31 at which time he was noted to have moderate lower extremity edema with venous stasis ulcers. Patient states that he has been using Silvadene cream and these have healed. He states the size of his lower extremities are half the size they were previously. Patient's next appointment with Dr. Millard is scheduled for August 30. Blood pressure is currently 118/61 heart rate in the 60s and 80s. Pu lse ox 90% on room air. Patient is status post 1-1/2 L of IV fluid. EKG reveals paced rhythm Chest x-ray no acute findings Laboratory data: WBC 6.2, hemoglobin 11.2, platelet count 166. Sodium 140, potassium 4.1, chloride 109. CO2 24, initial BUN 78 currently at 67, creatinine 3.69 and now 3.01. Magnesium 2.3. ProBNP 2860. Troponin is 0.134 and 0.119. CK 1071. Influenza A, influenza B, RSV and Covid 19 not detected. Current home cardiac medications: Atorvastatin 20 mg daily, Lasix 40 mg twice daily, Toprol-XL 25 mg daily, valsartan 80 mg daily Echocardiogram 07/2022 revealed normal EF, mild MR, mild TR, estimated RVSP 32 mmHg Patient underwent Lexiscan stress test in July 2021 revealed EF of 68% and was negative for ischemia 08/21 Patient is seen today in follow-up. He denies having any chest pain, shortness of breath, no lightheadedness or dizziness. He is currently on IV fluids. Heart rate is in the 60s and 70s, blood pressure 107/48, pulse ox 90% on room air. Repeat blood work reveals hemoglobin of 11.6, renal function is improving with BUN of 52 and creatinine 1.88. PHYSICAL EXAM: VITAL SIGNS: Reviewed. GENERAL: Well-developed in no acute distress. HEENT: Small laceration to the right forehead. Pupils are equal, round. Sclerae anicteric. Mucous membranes of the mouth are moist. Neck supple. LUNGS: Respirations even and unlabored. Lungs essentially clear to auscultation bilaterally. HEART: Regular rate and rhythm. S1 and S2 heard. 2/6 systolic murmur EXTREMITIES: Large bilateral lower extremities, trace edema, no active drainage/wounds NEUROLOGIC: Awake and alert. Oriented x 3. ASSESSMENT: Elevated troponin most likely due to acute kidney injury Acute kidney injury, improving Chronic kidney disease stage III Rhabdomyolysis secondary to fall Nonischemic cardiomyopathy with recovered EF Hypertension Hyperlipidemia Current pacemaker Chronic lower extremity edema and previous stasis ulcers healed PLAN: Resume patient's home cardiac medications except for valsartan and Lasix due to acute kidney injury Monitor electrolytes and renal function No plan for further cardiac workup at this time. Further recommendations as patient progresses Thank you kindly for this consultation. Nurse practitioner note has been reviewed, I agree with the documented findings and plan of care. Patient was seen and examined. Objective - Vital Signs Vital signs: Vital Signs Temp 98.1 F 08/21/22 08:00 Pulse 78 08/21/22 08:00 Resp 16 08/21/22 08:00 BP 107/48 08/21/22 08:00 Pulse Ox 94 L 08/21/22 08:02 FiO2 Intake & Output 08/20/22 08/21/22 08/21/22 18:59 06:59 18:59 Intake Total 236 570 Output Total 500 800 Balance -264 -230 Weight 96.7 kg Intake: Intake, IV Titration 450 Amount Sodium Chloride 0.9% 1, 450 000 ml @ 75 mls/hr IV . [id number] JENNIE Rx#:[id number] Oral 236 120 Output: Urine 500 800 Other: Voiding Method Urinal Urinal # Voids 2 - Labs CBC & Chem 7: 08/21/22 07:21 08/21/22 07:21 Labs: Abnormal Lab Results - Last 24 Hours (Table) 08/20/22 08/20/22 08/21/22 Range/Units 08:26 08:26 07:21 RBC 4.00 L 4.18 L (4.30-5.90) m/uL Hgb 11.2 L 11.6 L (13.0-17.5) gm/dL Hct 33.7 L 35.4 L (39.0-53.0) % Chloride 109 H (98-107) mmol/L BUN 67 H (9-20) mg/dL Creatinine 3.01 H (0.66-1.25) mg/dL Glucose (74-99) mg/dL Calcium 7.8 L (8.4-10.2) mg/dL AST (17-59) U/L Creatine Kinase (55-170) U/L Total Protein (6.3-8.2) g/dL Albumin (3.5-5.0) g/dL 08/21/22 Range/Units 07:21 RBC (4.30-5.90) m/uL Hgb (13.0-17.5) gm/dL Hct (39.0-53.0) % Chloride 113 H (98-107) mmol/L BUN 52 H (9-20) mg/dL Creatinine 1.88 H (0.66-1.25) mg/dL Glucose 115 H (74-99) mg/dL Calcium 8.0 L (8.4-10.2) mg/dL AST 73 H (17-59) U/L Creatine Kinase 373 H (55-170) U/L Total Protein 5.8 L (6.3-8.2) g/dL Albumin 3.0 L (3.5-5.0) g/dL
--- NOTE | 2022-08-21 12:19 | P.PN ---
Subjective Patient is seen for follow-up for acute kidney injury. Renal function continues to improve. Maintained on IV fluids. Creatinine down to 1.8 from 3.6 on initial admission. Voiding well. Objective - Vital Signs Vital signs: Vital Signs Temp 98.1 F 08/21/22 08:00 Pulse 64 08/21/22 12:00 Resp 16 08/21/22 12:00 BP 110/59 08/21/22 12:00 Pulse Ox 99 08/21/22 12:00 FiO2 Intake & Output 08/20/22 08/21/22 08/21/22 18:59 06:59 18:59 Intake Total 236 570 120 Output Total 500 800 Balance -264 -230 120 Weight 96.7 kg Intake: Intake, IV Titration 450 Amount Sodium Chloride 0.9% 1, 450 000 ml @ 75 mls/hr IV . [id number] [facility] Rx#:[id number] Oral 236 120 120 Output: Urine 500 800 Other: Voiding Method Urinal Urinal Urinal # Voids 2 - Exam Patient is awake, comfortable, no acute distress Examination of the heart S1 and S2 Examination lungs good air entry bilaterally no crackles or wheezing is heard Abdomen is soft obese nontender Examination lower extremity shows both legs to be wrapped [employer] exam grossly intact - Labs CBC & Chem 7: 08/21/22 07:21 08/21/22 07:21 Labs: Abnormal Lab Results - Last 24 Hours (Table) 08/21/22 08/21/22 Range/Units 07:21 07:21 RBC 4.18 L (4.30-5.90) m/uL Hgb 11.6 L (13.0-17.5) gm/dL Hct 35.4 L (39.0-53.0) % Chloride 113 H (98-107) mmol/L BUN 52 H (9-20) mg/dL Creatinine 1.88 H (0.66-1.25) mg/dL Glucose 115 H (74-99) mg/dL Calcium 8.0 L (8.4-10.2) mg/dL AST 73 H (17-59) U/L Creatine Kinase 373 H (55-170) U/L Total Protein 5.8 L (6.3-8.2) g/dL Albumin 3.0 L (3.5-5.0) g/dL Assessment and Plan Assessment: 1. Acute kidney injury mostly prerenal secondary to hypotension and further worsened with the use of Lasix and Diovan. Creatinine 3.69 on admission and 1.8 today. 2. Chronic kidney disease stage III with creatinine in the range of 1.2-1.6 since August 2021. UA with trace protein. 3. Mild rhabdomyolysis secondary to fall. 4. Hypertension with chronic kidney disease. Controlled. 5. Lower extremity cellulitis. Plan: DC IV fluids in a.m. Continue to encourage increased oral intake Continue to hold angiotensin receptor blockers as blood pressure remains low
--- NOTE | 2022-08-21 23:35 | P.PN ---
Subjective Progress Note Date: 08/21/22 Patient seen today his legs are still swollen and he complains of less shortness of breath overall states she's feeling a little bit better since admission. Patient is afebrile we continue to diurese patient slowly Objective - Vital Signs Vital signs: Vital Signs Temp 98.2 F 08/21/22 20:00 Pulse 78 08/21/22 20:00 Resp 18 08/21/22 20:00 BP 122/62 08/21/22 20:00 Pulse Ox 99 08/21/22 20:00 FiO2 Intake & Output 08/21/22 08/21/22 08/22/22 06:59 18:59 06:59 Intake Total 570 720 Output Total 800 500 Balance -230 220 Weight 96.7 kg Intake: Intake, IV Titration 450 600 Amount Sodium Chloride 0.9% 1, 450 600 000 ml @ 75 mls/hr IV . [id number] [facility] Rx#:[id number] Oral 120 120 Output: Urine 800 500 Other: Voiding Method Urinal Urinal Urinal # Voids 2 - Exam GENERAL: The patient is alert and oriented x3, not in any acute distress. Well developed, well nourished. HEENT: Pupils are round and equally reacting to light. EOMI. No scleral icterus. No conjunctival pallor. Normocephalic, atraumatic. No pharyngeal erythema. No thyromegaly. CARDIOVASCULAR: S1 and S2 present. No murmurs, rubs, or gallops. PULMONARY: Chest is clear to auscultation, no wheezing or crackles. ABDOMEN: Soft, nontender, nondistended, normoactive bowel sounds. No palpable organomegaly. MUSCULOSKELETAL: No joint swelling or deformity. EXTREMITIES: Chronic venous stasis changes of lower extremities bilaterally NEUROLOGICAL: Gross neurological examination did not reveal any focal deficits. SKIN: Rash and excoriations on his lower extremities - Labs CBC & Chem 7: 08/21/22 07:21 08/21/22 07:21 Labs: Abnormal Lab Results - Last 24 Hours (Table) 08/21/22 08/21/22 Range/Units 07:21 07:21 RBC 4.18 L (4.30-5.90) m/uL Hgb 11.6 L (13.0-17.5) gm/dL Hct 35.4 L (39.0-53.0) % Chloride 113 H (98-107) mmol/L BUN 52 H (9-20) mg/dL Creatinine 1.88 H (0.66-1.25) mg/dL Glucose 115 H (74-99) mg/dL Calcium 8.0 L (8.4-10.2) mg/dL AST 73 H (17-59) U/L Creatine Kinase 373 H (55-170) U/L Total Protein 5.8 L (6.3-8.2) g/dL Albumin 3.0 L (3.5-5.0) g/dL Assessment and Plan (1) Rhabdomyolysis Current Visit: Yes Status: Acute Code(s): M62.82 - RHABDOMYOLYSIS SNOMED Code(s): 154915258 (2) DEISY (acute kidney injury) Current Visit: Yes Status: Acute Code(s): N17.9 - ACUTE KIDNEY FAILURE, UNSPECIFIED SNOMED Code(s): 75285656 (3) Elevated troponin Current Visit: Yes Status: Acute Code(s): R77.8 - OTHER SPECIFIED ABNORMALITIES OF PLASMA PROTEINS SNOMED Code(s): 930606433 (4) Fall Current Visit: Yes Status: Acute Code(s): W19.XXXA - UNSPECIFIED FALL, INITIAL ENCOUNTER SNOMED Code(s): 7396066 (5) Weakness Current Visit: Yes Status: Acute Code(s): R53.1 - WEAKNESS SNOMED Code(s): 88936233 (6) Hyperlipemia Current Visit: No Status: Acute Code(s): E78.5 - HYPERLIPIDEMIA, UNSPECIFIED SNOMED Code(s): 37876213 Plan: Continue to hydrate cautiously because of fluid overload and edema managed stasis dermatitis of his lower extremities
[2022-08-22] MEDS: SODIUM CHLORIDE 0.9% 1,000 ML IV SCH ×2 (05:56→09:13)
[2022-08-22] MEDS: METOPROLOL SUCCINATE (ER) 25 MG TAB.ER.24H PO SCH (09:12)
[2022-08-22] MEDS: ATORVASTATIN 20 MG TAB PO SCH (09:12)
--- NOTE | 2022-08-22 11:03 | CDI ---
Documentation Clarification Form Date: 08/22/2022 10:32:27 AM From: Debbie Gutierrez RN CCDS Phone: [phone] Admit Date: 08/19/2022 10:58:00 PM Patient Name: John Silva Visit Number: [id number] Discharge Date: ATTENTION: The Clinical Documentation Specialists (CDI) and [facility] Coding Staff appreciate your assistance in clarifying documentation. Please respond to the clarification below the line at the bottom and electronically sign. The CDI & [facility] Coding staff will review the response and follow-up if needed. Please note: Queries are made part of the Legal Health Record. If you have any questions, please contact the author of this message via ITS. Dr. Jett Tyson Rhabdomyolysis is documented 08/20, H&P.. Additional clarification regarding the type of rhabdomyolysis is requested. History/Risk Factors: 77 y/o M presents to the ED after falling and has been crawling on the floor. Medical History: Heart Failure, HLD HTN and Skin cancer. 08/20, H&P. Clinical Indicators: 08/20, Cardiology consult: He apparently was crawling around the house for a couple of days. His also had a fall several days before him and had also been on the floor for a long period of time. Creatine Kinase 08/19 1071 ; 08/21 373 Treatment: 08/20 0.9ns 1L IV Bolus; 08/20 0.9ns 500ml IV Bolus. Please clarify the type of rhabdomyolysis, if known: [ X] Traumatic rhabdomyolysis due to fall [X ] Traumatic rhabdomyolysis due to prolonged immobility [ ] Other, please specify [ ] Unable to Determine (Template Last Revised: May 2020) MTDD
[2022-08-22 11:11] LABS: Calcium 7.7 mg/dL (8.4-10.2); Potassium 3.7 mmol/L (3.5-5.1)
--- NOTE | 2022-08-22 11:41 | P.PN ---
Subjective Patient is seen for follow-up for acute kidney injury. Renal function continues to improve. Maintained on IV fluids. Creatinine down to 1.2 from 3.6 on initial admission. Voiding well. Objective - Vital Signs Vital signs: Vital Signs Temp 97.7 F 08/22/22 11:22 Pulse 74 08/22/22 11:22 Resp 18 08/22/22 11:22 BP 148/66 08/22/22 11:22 Pulse Ox 99 08/22/22 11:22 FiO2 Intake & Output 08/21/22 08/22/22 08/22/22 18:59 06:59 18:59 Intake Total 720 180 Output Total 500 600 500 Balance 220 -600 -320 Weight 98.8 kg Intake: Intake, IV Titration 600 Amount Sodium Chloride 0.9% 1, 600 000 ml @ 75 mls/hr IV . 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 Acute kidney injury mostly prerenal secondary to hypotension and further worsened with the use of Diovan. Creatinine 3.69 on admission and 1.8 today. 2. Chronic kidney disease stage III with creatinine in the range of 1.2-1.6 since August 2021. UA with trace protein. 3. Mild rhabdomyolysis secondary to fall. 4. Hypertension with chronic kidney disease. Controlled. 5. Lower extremity cellulitis. Plan: DC IV fluids Resume loop diuretics Continue to hold angiotensin receptor blockers as blood pressure remains low
[2022-08-22] MEDS: FUROSEMIDE 40 MG TAB PO SCH (12:14)
--- NOTE | 2022-08-22 13:48 | P.PN ---
Subjective Progress Note Date: 08/22/22 HISTORY OF PRESENT ILLNESS: This is a 77-year-old male patient of Dr. Millard with a past medical history significant for nonischemic cardiomyopathy, hypertension, hyperlipidemia, permanent pacemaker and chronic lower extremity edema. We have been asked to see the patient in consultation for elevated troponins and lower extremity edema. Patient gives history that he had a fall and spent at least a couple days on the floor. He states he has a bad hip and he jumped up out of the chair to fast and ended up falling forward after taking 2 steps. He states he blacked out for 2 seconds and he did hit his head on the couch. He apparently was crawling around the house for a couple of days before someone was able to find him. He denies having any chest pain. He did have one episode of diarrhea before the fall. His and also had a fall several days before him and had also been on the floor for a long period of time. Patient was last seen in the office on July 31 at which time he was noted to have moderate lower extremity edema with venous stasis ulcers. Patient states that he has been using Silvadene cream and these have healed. He states the size of his lower extremities are half the size they were previously. Patient's next appointment with Dr. Millard is scheduled for August 30. Blood pressure is currently 118/61 heart rate in the 60s and 80s. Pu lse ox 90% on room air. Patient is status post 1-1/2 L of IV fluid. EKG reveals paced rhythm Chest x-ray no acute findings Laboratory data: WBC 6.2, hemoglobin 11.2, platelet count 166. Sodium 140, potassium 4.1, chloride 109. CO2 24, initial BUN 78 currently at 67, creatinine 3.69 and now 3.01. Magnesium 2.3. ProBNP 2860. Troponin is 0.134 and 0.119. CK 1071. Influenza A, influenza B, RSV and Covid 19 not detected. Current home cardiac medications: Atorvastatin 20 mg daily, Lasix 40 mg twice daily, Toprol-XL 25 mg daily, valsartan 80 mg daily Echocardiogram 07/2022 revealed normal EF, mild MR, mild TR, estimated RVSP 32 mmHg Patient underwent Lexiscan stress test in July 2021 revealed EF of 68% and was negative for ischemia 08/21 Patient is seen today in follow-up. He denies having any chest pain, shortness of breath, no lightheadedness or dizziness. He is currently on IV fluids. Heart rate is in the 60s and 70s, blood pressure 107/48, pulse ox 90% on room air. Repeat blood work reveals hemoglobin of 11.6, renal function is improving with BUN of 52 and creatinine 1.88. 08/22 Patient is seen today in follow-up. He is sitting in a recliner legs or into dependent position. He has his chronic lower extremity edema no worsening. He has 1 wound on the right lower lateral pretibial area that is scabbed. No weeping. Blood pressure 148/66, heart rate in the 70s and 80s. Monitor is a paced rhythm. Patient has had significant improvement in renal function with BUN of 34 and creatinine 1.2. Sodium 143 and potassium 3.7, chloride 113, CO2 26. PHYSICAL EXAM: VITAL SIGNS: Reviewed. GENERAL: Well-developed in no acute distress. HEENT: Small laceration to the right forehead. Pupils are equal, round. Sclerae anicteric. Mucous membranes of the mouth are moist. Neck supple. LUNGS: Respirations even and unlabored. Lungs essentially clear to auscultation bilaterally. HEART: Regular rate and rhythm. S1 and S2 heard. 2/6 systolic murmur EXTREMITIES: Large bilateral lower extremities, trace edema, no active drainage/wounds NEUROLOGIC: Awake and alert. Oriented x 3. ASSESSMENT: Elevated troponin most likely due to acute kidney injury Acute kidney injury, improving Chronic kidney disease stage III Rhabdomyolysis secondary to fall Nonischemic cardiomyopathy with recovered EF Hypertension Hyperlipidemia Current pacemaker Chronic lower extremity edema and previous stasis ulcers healed PLAN: Resume patient's home cardiac medications except for valsartan and Lasix due to acute kidney injury Monitor electrolytes and renal function No plan for further cardiac workup at this time. Cardiology we will sign off and follow on an as-needed basis. Please reconsult for any new concerns. Nurse practitioner note has been reviewed, I agree with the documented findings and plan of care. Patient was seen and examined. Objective - Vital Signs Vital signs: Vital Signs Temp 97.7 F 08/22/22 11:22 Pulse 74 08/22/22 11:22 Resp 18 08/22/22 11:22 BP 148/66 08/22/22 11:22 Pulse Ox 99 08/22/22 11:22 FiO2 Intake & Output 08/21/22 08/22/22 08/22/22 18:59 06:59 18:59 Intake Total 720 180 Output Total 500 600 500 Balance 220 -600 -320 Weight 98.8 kg Intake: Intake, IV Titration 600 Amount Sodium Chloride 0.9% 1, 600 000 ml @ 75 mls/hr IV . [id number] [facility] Rx#:[id number] Oral 120 180 Output: Urine 500 600 500 Other: Voiding Method Urinal Urinal Urinal - Labs CBC & Chem 7: 08/21/22 07:21 08/22/22 10:40 Labs: Abnormal Lab Results - Last 24 Hours (Table) 08/22/22 Range/Units 10:40 Chloride 113 H (98-107) mmol/L BUN 34 H (9-20) mg/dL Glucose 111 H (74-99) mg/dL Calcium 7.7 L (8.4-10.2) mg/dL
--- NOTE | 2022-08-22 22:59 | P.PN ---
Subjective Progress Note Date: 08/22/22 Objective - Vital Signs Vital signs: Vital Signs Temp 98.5 F 08/22/22 20:00 Pulse 89 08/22/22 20:00 Resp 16 08/22/22 20:00 BP 122/54 08/22/22 20:00 Pulse Ox 98 08/22/22 20:00 FiO2 Intake & Output 08/22/22 08/22/22 08/23/22 06:59 18:59 06:59 Intake Total 540 Output Total 600 1225 Balance -600 -685 Weight 98.8 kg Intake: Oral 540 Output: Urine 600 1225 Other: Voiding Method Urinal Urinal Urinal # Bowel Movements 1 - Exam GENERAL: The patient is alert and oriented x3, not in any acute distress. Well developed, well nourished. HEENT: Pupils are round and equally reacting to light. EOMI. No scleral icterus. No conjunctival pallor. Normocephalic, atraumatic. No pharyngeal erythema. No thyromegaly. CARDIOVASCULAR: S1 and S2 present. No murmurs, rubs, or gallops. PULMONARY: Chest is clear to auscultation, no wheezing or crackles. ABDOMEN: Soft, nontender, nondistended, normoactive bowel sounds. No palpable organomegaly. MUSCULOSKELETAL: No joint swelling or deformity. EXTREMITIES: Chronic venous stasis changes of lower extremities bilaterally NEUROLOGICAL: Gross neurological examination did not reveal any focal deficits. SKIN: Rash and excoriations on his lower extremities - Labs CBC & Chem 7: 08/21/22 07:21 08/22/22 10:40 Labs: Abnormal Lab Results - Last 24 Hours (Table) 08/22/22 Range/Units 10:40 Chloride 113 H (98-107) mmol/L BUN 34 H (9-20) mg/dL Glucose 111 H (74-99) mg/dL Calcium 7.7 L (8.4-10.2) mg/dL Assessment and Plan (1) Rhabdomyolysis Narrative/Plan: secondary to fall and trauma Current Visit: Yes Status: Acute Code(s): M62.82 - RHABDOMYOLYSIS SNOMED Code(s): 386959313 (2) DEISY (acute kidney injury) Current Visit: Yes Status: Acute Code(s): N17.9 - ACUTE KIDNEY FAILURE, UNSPECIFIED SNOMED Code(s): 57685131 (3) Elevated troponin Current Visit: Yes Status: Acute Code(s): R77.8 - OTHER SPECIFIED ABNORMALITIES OF PLASMA PROTEINS SNOMED Code(s): 707534676 (4) Fall Current Visit: Yes Status: Acute Code(s): W19.XXXA - UNSPECIFIED FALL, IN ITIAL ENCOUNTER SNOMED Code(s): 0652238 (5) Weakness Current Visit: Yes Status: Acute Code(s): R53.1 - WEAKNESS SNOMED Code(s): 04238382 (6) Hyperlipemia Current Visit: No Status: Acute Code(s): E78.5 - HYPERLIPIDEMIA, UNSPECIFIED SNOMED Code(s): 68734687 Plan: Continue to hydrate cautiously because of fluid overload and edema managed stasis dermatitis of his lower extremities patient will likely to outpatient rehabilitation in the next 24-48 hours
[2022-08-23] MEDS: METOPROLOL SUCCINATE (ER) 25 MG TAB.ER.24H PO SCH (08:28)
[2022-08-23] MEDS: FUROSEMIDE 40 MG TAB PO SCH (08:28)
[2022-08-23] MEDS: ATORVASTATIN 20 MG TAB PO SCH (08:28)
--- NOTE | 2022-08-23 10:37 | P.PN ---
Subjective Patient is seen for follow-up for acute kidney injury. Renal function continues to improve. IV fluids discontinued Creatinine down to 1.2 from 3.6 on initial admission. Voiding well. Objective - Vital Signs Vital signs: Vital Signs Temp 99.0 F 08/23/22 08:04 Pulse 59 L 08/23/22 08:04 Resp 18 08/23/22 08:04 BP 120/68 08/23/22 08:04 Pulse Ox 97 08/23/22 08:04 FiO2 Intake & Output 08/22/22 08/23/22 08/23/22 18:59 06:59 18:59 Intake Total 540 110 Output Total 1225 300 Balance -685 -300 110 Weight 101 kg Intake: Oral 540 110 Output: Urine 1225 300 Other: Voiding Method Urinal Urinal Urinal # Bowel Movements 1 - Exam Patient is awake, comfortable, no acute distress Examination of the heart S1 and S2 Examination lungs good air entry bilaterally no crackles or wheezing is heard Abdomen is soft obese nontender Examination lower extremity shows both legs with edema about 2+ with chronic 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 Acute kidney injury mostly prerenal secondary to hypotension and further worsened with the use of Diovan. Creatinine 3.69 on admission and down to 1.2 2. Chronic kidney disease stage III with creatinine in the range of 1.2-1.6 since August 2021. UA with trace protein. 3. Mild rhabdomyolysis secondary to fall. 4. Hypertension with chronic kidney disease. Controlled. 5. Lower extremity cellulitis. Plan: Continue current dose of Lasix Continue to hold angiotensin receptor blockers as blood pressure remains low
--- NOTE | 2022-08-23 12:37 | CDI ---
Documentation Clarification Form Date: 08/23/2022 12:22:22 PM From: Debbie Gutierrez RN CCDS Phone: [phone] Admit Date: 08/19/2022 10:58:00 PM Patient Name: John Silva Visit Number: [id number] Discharge Date: ATTENTION: The Clinical Documentation Specialists (CDI) and [facility] Coding Staff appreciate your assistance in clarifying documentation. Please respond to the clarification below the line at the bottom and electronically sign. The CDI & [facility] Coding staff will review the response and follow-up if needed. Please note: Queries are made part of the Legal Health Record. If you have any questions, please contact the author of this message via ITS. Dr. Jett Tyson Your patient has the documented diagnosis of unspecified CHF 08/20, H&P. Additional information regarding the type, acuity of CHF is requested. History/Risk Factors: 77-year-old Male presents to the ED after a fall and has been crawling on the floor. Medical History: Heart failure, HLD, HTN and skin cancer. 08/20 H&P Clinical Indicators: VS/Pulse OX: 08/19 B/P 129/59; HR 63; RR 18; SpO2 100% room air BNP: 08/20 2860 Echocardiogram Results: 06/10/2021 EF 45-50% Ventricular size is normal. Moderate concentric left ventricular hypertrophy, Aortic valve trileaflet is mildly thickened. Trace mitral regurgitation. Mild tricuspid regurgitation present. Chest X Ray: 08/19 No acute cardiopulmonary disease/process Treatment: 08/22 Lasix 40mg PO Daily; 08/21 Toprol XL 25mg PO Daily In your professional opinion, can you please clarify the acuity and type of CHF if known? [ X] Chronic Systolic Heart Failure (reduced EF) [ ] Chronic Diastolic Heart Failure (preserved EF) [ ] Chronic Systolic & Diastolic Heart Failure [ ] Other, please specify [ ] Unable to determine (Template Last Revised: May 2020) MTDD
--- NOTE | 2022-08-23 22:35 | P.PN ---
Subjective Progress Note Date: 08/23/22 Patient seen today his legs are still swollen and he complains of less shortness of breath overall states she's feeling a little bit better since admission. Patient is afebrile we continue to diurese patient slowly patient is awaiting clearance for discharge to extended care facility rehabilitation. Objective - Vital Signs Vital signs: Vital Signs Temp 97.9 F 08/23/22 20:00 Pulse 81 08/23/22 20:00 Resp 16 08/23/22 20:00 BP 128/63 08/23/22 20:00 Pulse Ox 98 08/23/22 20:00 FiO2 Intake & Output 08/23/22 08/23/22 08/24/22 06:59 18:59 06:59 Intake Total 330 Output Total 300 740 Balance -300 -410 Weight 101 kg Intake: Oral 330 Output: Urine 300 740 Other: Voiding Method Urinal Urinal Urinal # Voids 1 - Exam GENERAL: The patient is alert and oriented x3, not in any acute distress. Well developed, well nourished. HEENT: Pupils are round and equally reacting to light. EOMI. No scleral icterus. No conjunctival pallor. Normocephalic, atraumatic. No pharyngeal erythema. No thyromegaly. CARDIOVASCULAR: S1 and S2 present. No murmurs, rubs, or gallops. PULMONARY: Chest is clear to auscultation, no wheezing or crackles. ABDOMEN: Soft, nontender, nondistended, normoactive bowel sounds. No palpable organomegaly. MUSCULOSKELETAL: No joint swelling or deformity. EXTREMITIES: Chronic venous stasis changes of lower extremities bilaterally NEUROLOGICAL: Gross neurological examination did not reveal any focal deficits. SKIN: Rash and excoriations on his lower extremities - Labs CBC & Chem 7: 08/21/22 07:21 08/22/22 10:40 Assessment and Plan (1) Rhabdomyolysis Current Visit: Yes Status: Acute Code(s): M62.82 - RHABDOMYOLYSIS SNOMED Code(s): 319154789 (2) DEISY (acute kidney injury) Current Visit: Yes Status: Acute Code(s): N17.9 - ACUTE KIDNEY FAILURE, UNSPECIFIED SNOMED Code(s): 77495152 (3) Elevated troponin Current Visit: Yes Status: Acute Code(s): R77.8 - OTHER SPECIFIED ABNORMALITIES OF PLASMA PROTEINS SNOMED Code(s): 215952755 (4) Fall Current Visit: Yes Status: Acute Code(s): W19.XXXA - UNSPECIFIED FALL, INITIAL ENCOUNTER SNOMED Code(s): 0144730 (5) Weakness Current Visit: Yes Status: Acute Code(s): R53.1 - WEAKNESS SNOMED Code(s): 31979039 (6) Hyperlipemia Current Visit: No Status: Acute Code(s): E78.5 - HYPERLIPIDEMIA, UNSPECIFIED SNOMED Code(s): 62092370 Plan: Continue to hydrate cautiously because of fluid overload and edema managed stasis dermatitis of his lower extremities patient will likely to outpatient rehabilitation in the next 24-48 hours
[2022-08-24] MEDS: METOPROLOL SUCCINATE (ER) 25 MG TAB.ER.24H PO SCH (07:47)
[2022-08-24] MEDS: ATORVASTATIN 20 MG TAB PO SCH (07:48)
[2022-08-24] MEDS: FUROSEMIDE 40 MG TAB PO SCH (07:48)
--- NOTE | 2022-08-24 11:22 | P.PN ---
Subjective Patient is seen for follow-up for acute kidney injury. Renal function has improveD. IV fluids discontinued Creatinine down to 1.2 from 3.6 on initial admission. Voiding well. Maintained on oral Lasix. Objective - Vital Signs Vital signs: Vital Signs Temp 97.6 F 08/24/22 08:00 Pulse 97 08/24/22 08:00 Resp 18 08/24/22 08:00 BP 112/68 08/24/22 08:00 Pulse Ox 99 08/24/22 08:00 FiO2 Intake & Output 08/23/22 08/24/22 08/24/22 18:59 06:59 18:59 Intake Total 330 110 Output Total 740 550 Balance -410 -550 110 Intake: Oral 330 110 Output: Urine 740 550 Other: Voiding Method Urinal Urinal Urinal # Voids 1 - Exam Patient is awake, comfortable, no acute distress Examination of the heart S1 and S2 Examination lungs good air entry bilaterally no crackles or wheezing is heard Abdomen is soft obese nontender Examination lower extremity shows both legs with edema about 2+ with chronic 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 Acute kidney injury mostly prerenal secondary to hypotension and further w orsened with the use of Diovan. Creatinine 3.69 on admission and down to 1.2 2. Chronic kidney disease stage III with creatinine in the range of 1.2-1.6 since August 2021. UA with trace protein. 3. Mild rhabdomyolysis secondary to fall. 4. Hypertension with chronic kidney disease. Controlled. 5. Lower extremity cellulitis. Plan: Continue current dose of Lasix Continue to hold angiotensin receptor blockers as blood pressure remains low
[2022-08-24 13:12] VITALS: BMI 30.2
--- NOTE | 2022-08-24 23:01 | P.PN ---
Subjective Progress Note Date: 08/24/22 Patient seen today his legs are still swollen and he complains of less shortness of breath overall states she's feeling a little bit better since admission. Patient is afebrile we continue to diurese patient slowly patient is awaiting clearance for discharge to extended care facility rehabilitation. Objective - Vital Signs Vital signs: Vital Signs Temp 98.3 F 08/24/22 20:00 Pulse 84 08/24/22 20:00 Resp 18 08/24/22 20:00 BP 107/60 08/24/22 20:00 Pulse Ox 98 08/24/22 14:39 FiO2 Intake & Output 08/24/22 08/24/22 08/25/22 06:59 18:59 06:59 Intake Total 330 Output Total 550 800 Balance -550 -470 Weight 101 kg Intake: Oral 330 Output: Urine 550 800 Other: Voiding Method Urinal Urinal Urinal - Exam GENERAL: The patient is alert and oriented x3, not in any acute distress. Well developed, well nourished. HEENT: Pupils are round and equally reacting to light. EOMI. No scleral icterus. No conjunctival pallor. Normocephalic, atraumatic. No pharyngeal erythema. No thyromegaly. CARDIOVASCULAR: S1 and S2 present. No murmurs, rubs, or gallops. PULMONARY: Chest is clear to auscultation, no wheezing or crackles. ABDOMEN: Soft, nontender, nondistended, normoactive bowel sounds. No palpable organomegaly. MUSCULOSKELETAL: No joint swelling or deformity. EXTREMITIES: Chronic venous stasis changes of lower extremities bilaterally NEUROLOGICAL: Gross neurological examination did not reveal any focal deficits. SKIN: Rash and excoriations on his lower extremities - Labs CBC & Chem 7: 08/21/22 07:21 08/22/22 10:40 Assessment and Plan (1) Rhabdomyolysis Narrative/Plan: secondary to fall and trauma Current Visit: Yes Status: Acute Code(s): M62.82 - RHABDOMYOLYSIS SNOMED Code(s): 369961564 (2) DEISY (acute kidney injury) Current Visit: Yes Status: Acute Code(s): N17.9 - ACUTE KIDNEY FAILURE, UNSPECIFIED SNOMED Code(s): 73162140 (3) Elevated troponin Current Visit: Yes Status: Acute Code(s): R77.8 - OTHER SPECIFIED ABNORMALITIES OF PLASMA PROTEINS SNOMED Code(s): 125730325 (4) Fall Current Visit: Yes Status: Acute Code(s): W19.XXXA - UNSPECIFIED FALL, INITIAL ENCOUNTER SNOMED Code(s): 3609893 (5) Weakness Current Visit: Yes Status: Acute Code(s): R53.1 - WEAKNESS SNOMED Code(s): 66515037 (6) Hyperlipemia Current Visit: No Status: Acute Code(s): E78.5 - HYPERLIPIDEMIA, UNSPECIFIED SNOMED Code(s): 55077577 Plan: Continue to hydrate cautiously because of fluid overload and edema managed stasis dermatitis of his lower extremities patient will likely to outpatient rehabilitation in am
[2022-08-25] MEDS: ACETAMINOPHEN TAB 325 MG TAB PO PRN (01:48)
[2022-08-25 08:14] VITALS: BP 137/71; PULSE 79; RESP 18; TEMP 98.6
[2022-08-25] MEDS: METOPROLOL SUCCINATE (ER) 25 MG TAB.ER.24H PO SCH (09:08)
[2022-08-25] MEDS: FUROSEMIDE 40 MG TAB PO SCH (09:08)
[2022-08-25] MEDS: ATORVASTATIN 20 MG TAB PO SCH (09:08)
--- NOTE | 2022-08-25 09:54 | P.DS ---
Providers Date of admission: 08/19/22 22:58 Expected date of discharge: 08/25/22 Attending physician: Jett Tyson Consults: 08/20/22 01:16 Consult Physician Routine Consulting Provider: Neville Ward Consult Reason/Comments: positive trop, lower extremity edema Do you want consulting provider notified?: Yes, Notify in am 08/20/22 01:17 Consult Physician Routine Consulting Provider: Herman Best Consult Reason/Comments: acute kidney injury Do you want consulting provider notified?: Yes, Notify in am Primary care physician: Jett Tyson - Discharge Diagnosis(es) (1) Rhabdomyolysis Current Visit: Yes Status: Acute (2) DEISY (acute kidney injury) Current Visit: Yes Status: Acute (3) Elevated troponin Current Visit: Yes Status: Acute (4) Fall Current Visit: Yes Status: Acute (5) Weakness Current Visit: Yes Status: Acute (6) Hyperlipemia Current Visit: No Status: Acute Hospital Course: Patient's 77-year-old white male was admitted after having cellulitis of his lower extremity he also suffered from rhabdomyolysis caused by his fall at home in his extended downtime on the floor. He had acute kidney injury and congestive heart failure which has left him with substantial edema in his lower extremities with stasis dermatitis and ulcerations patient was cleared by nephrology and cardiology to go to an extended care facility for rehab he'll need wound care to his lower extremities and he'll need help with ambulation in his activities of daily living. Patient Condition at Discharge: Fair Plan - Discharge Summary Discharge Rx Participant: No New Discharge Prescriptions: New Furosemide [Lasix] 40 mg PO DAILY tab Acetaminophen Tab [Tylenol] 650 mg PO Q6HR PRN tab PRN Reason: Mild Pain Or Fever > 100.5 Continue Atorvastatin [Lipitor] 20 mg PO DAILY Cephalexin [Keflex] 1,000 mg PO Q12HR Valsartan [Diovan] 80 mg PO DAILY Metoprolol Succinate (ER) [Toprol XL] 25 mg PO DAILY SILVER sulfADIAZINE Cream [Silvadene 1% Cream] 1 applic TOPICAL DAILY Discontinued Furosemide [Lasix] 40 mg PO BID Discharge Medication List Atorvastatin [Lipitor] 20 mg PO DAILY 06/16/21 [History] Cephalexin [Keflex] 1,000 mg PO Q12HR 08/19/22 [History] Metoprolol Succinate (ER) [Toprol XL] 25 mg PO DAILY 08/19/22 [History] SILVER sulfADIAZINE Cream [Silvadene 1% Cream] 1 applic TOPICAL DAILY 08/19/22 [History] Valsartan [Diovan] 80 mg PO DAILY 08/19/22 [History] Acetaminophen Tab [Tylenol] 650 mg PO Q6HR PRN tab 08/25/22 [Rx] Furosemide [Lasix] 40 mg PO DAILY tab 08/25/22 [Rx] Follow up Appointment(s)/Referral(s): Kimberlee Carter, [NON-STAFF] - As Needed Jett Tyson DO [Primary Care Provider] - 2 Weeks Discharge Disposition: TRANSFER TO SNF/ECF
--- NOTE | 2022-08-25 10:39 | P.PN ---
Subjective Patient is seen for follow-up for acute kidney injury. Renal function has improveD. IV fluids discontinued Creatinine down to 1.2 from 3.6 on initial admission. No recent labs available. Patient is awaiting discharge to rehab. Voiding well. Maintained on oral Lasix. Objective - Vital Signs Vital signs: Vital Signs Temp 98.6 F 08/25/22 07:31 Pulse 79 08/25/22 07:31 Resp 18 08/25/22 07:31 BP 137/71 08/25/22 07:31 Pulse Ox 97 08/25/22 07:31 FiO2 Intake & Output 08/24/22 08/25/22 08/25/22 18:59 06:59 18:59 Intake Total 330 300 Output Total 800 600 Balance -470 -300 Weight 101 kg Intake: Oral 330 300 Output: Urine 800 600 Other: Voiding Method Urinal Urinal - Exam Patient is awake, comfortable, no acute distress Examination of the heart S1 and S2 Examination lungs good air entry bilaterally no crackles or wheezing is heard Abdomen is soft obese nontender Examination lower extremity shows both legs with edema about 2+ with chronic skin changes 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 Acute kidney injury mostly prerenal secondary to hypotension and further worsened with the use of Diovan. Creatinine 3.69 on admission and down to 1.2 2. Chronic kidney disease stage III with creatinine in the range of 1.2-1.6 since August 2021. UA with trace protein. 3. Mild rhabdomyolysis secondary to fall. 4. Hypertension with chronic kidney disease. Controlled. 5. Lower extremity cellulitis. Plan: Check labs if patient is not discharged today.
== END 2022-08-25 12:30 | DRG 564 ==
LOC: EC 18:20 → 3SCARD 22:58 → 4SSUR 08-24 21:24
PROVIDERS: ADMIT Family Medicine; ATTEND Family Medicine
DX: T79.6XXA Traumatic ischemia of muscle, initial encounter (principal); G93.41 Metabolic encephalopathy; I13.0 Hypertensive heart and chronic kidney disease with heart failure and stage 1 through stage 4 chronic kidney disease, or unspecified chronic kidney disease; N17.9 Acute kidney failure, unspecified; I42.8 Other cardiomyopathies; I50.22 Chronic systolic (congestive) heart failure; L03.116 Cellulitis of left lower limb; L03.115 Cellulitis of right lower limb; I87.8 Other specified disorders of veins; I95.9 Hypotension, unspecified; N18.30 Chronic kidney disease, stage 3 unspecified; Z66 Do not resuscitate; Z20.822 Contact with and (suspected) exposure to COVID-19; E78.5 Hyperlipidemia, unspecified; S01.01XA Laceration without foreign body of scalp, initial encounter; R77.8 Other specified abnormalities of plasma proteins; R29.6 Repeated falls; Z79.899 Other long term (current) drug therapy; Z95.0 Presence of cardiac pacemaker; Z85.828 Personal history of other malignant neoplasm of skin; Z96.641 Presence of right artificial hip joint; W07.XXXA Fall from chair, initial encounter; Z87.891 Personal history of nicotine dependence
CPT/HCPCS: 36415; 70450; 71045; 72125; 72170; 76770; 80048; 80053; 81001; 82550; 83735; 83880; 84484; 85025; 85610; 85730; 87635; 87636; 93005; 94760; 96360; 96361; 99285

== ENCOUNTER 2023-02-13 15:38 | Emergency (ER) | payer MEDICARE ==
--- NOTE | 2023-02-13 15:55 | ED ---
Upper Extremity HPI - General Source: patient, RN notes reviewed Mode of arrival: ambulatory Limitations: no limitations <Sukh Fuller - Last Filed: 02/13/23 15:55> - General Source: RN notes reviewed, old records reviewed Mode of arrival: ambulatory Limitations: no limitations - History of Present Illness MD Complaint: Injury to:: left, forearm, wrist -: days(s) Other Extremity Injury: Wrist: Left Handedness: right Place: home Severity scale (1-10): 6 Improves With: none Worsens With: none Context: fall Associated Symptoms: denies other symptoms <Surendra Lacey - Last Filed: 02/18/23 20:21> - General Chief Complaint: Extremity Injury, Upper Stated Complaint: L Wrist Swollen/Pain Time Seen by Provider: 02/13/23 15:55 - History of Present Illness Initial Comments: 77-year-old male presents emergency Department chief complaint of left wrist pain. Patient states he become swollen over the last 3 days. Patient denies a ny trauma. Patient states it is red, warm to the touch. Patient states never any infection his wrist before. (Sukh Fuller) This is a 77-year-old male to the emergency department today. Patient presents today for evaluation of left hand pain. Significant left hand pain and swelling that is noticed for a day and a half now. Patient was leaving his doctor's office when he began to notice significant pain and swelling of his left wrist and hand. No prior history of similar event. No traumatic injury noted. (Surendra Lacey) - Related Data Home Medications Medication Instructions Recorded Confirmed Atorvastatin [Lipitor] 20 mg PO DAILY 06/16/21 08/19/22 Cephalexin [Keflex] 1,000 mg PO Q12HR 08/19/22 08/19/22 Metoprolol Succinate (ER) [Toprol 25 mg PO DAILY 08/19/22 08/19/22 XL] SILVER sulfADIAZINE Cream 1 applic TOPICAL DAILY 08/19/22 08/19/22 [Silvadene 1% Cream] Valsartan [Diovan] 80 mg PO DAILY 08/19/22 08/19/22 Previous Rx's Medication Instructions Recorded Acetaminophen Tab [Tylenol] 650 mg PO Q6HR PRN tab 08/25/22 Furosemide [Lasix] 40 mg PO DAILY tab 08/25/22 Cephalexin [Keflex] 500 mg PO Q8HR #21 cap 02/13/23 Ibuprofen [Motrin] 600 mg PO Q8HR PRN #20 tab 02/13/23 Allergies Allergy/AdvReac Type Severity Reaction Status Date / Time No Known Allergies Allergy Verified 08/19/22 20:25 Review of Systems ROS Other: All systems not noted in ROS Statement are negative. <Sukh Fuller - Last Filed: 02/13/23 15:55> ROS Other: All systems not noted in ROS Statement are negative. <Surendra Lacey - Last Filed: 02/18/23 20:21> ROS Statement: Those systems with pertinent positive or pertinent negative responses have been documented in the HPI. Past Medical History Past Medical History: Cancer Additional Past Medical History / Comment(s): Skin cancer on face. Swelling in feet, calves and knees, skin cancer, History of Any Multi-Drug Resistant Organisms: None Reported Past Surgical History: Joint Replacement Additional Past Surgical History / Comment(s): right hip replacement, cataracts removed. Past Anesthesia/Blood Transfusion Reactions: No Reported Reaction Type of Cardiac Device: Permanent Pacemaker Device Placement Date:: 06/20/21 Past Psychological History: No Psychological Hx Reported Smoking Status: Former smoker Past Alcohol Use History: None Reported Past Drug Use History: None Reported - Past Family History Mother Family Medical History: No Reported History <Sukh Fuller - Last Filed: 02/13/23 15:55> General Exam Limitations: no limitations <Sukh Fuller - Last Filed: 02/13/23 15:55> General appearance: alert, in no apparent distress Head exam: Present: atraumatic, normocephalic, normal inspection Eye exam: Present: normal appearance, PERRL, EOMI. Absent: scleral icterus, conjunctival injection, periorbital swelling ENT exam: Present: normal exam, mucous membranes moist Neck exam: Present: normal inspection. Absent: tenderness, meningismus, lymphad enopathy Respiratory exam: Present: normal lung sounds bilaterally. Absent: respiratory distress, wheezes, rales, rhonchi, stridor Cardiovascular Exam: Present: regular rate, normal rhythm, normal heart sounds. Absent: systolic murmur, diastolic murmur, rubs, gallop, clicks GI/Abdominal exam: Present: soft, normal bowel sounds. Absent: distended, tenderness, guarding, rebound, rigid Extremities exam: Present: normal inspection, full ROM, tenderness, normal capillary refill, other (swelling wrist area and hand). Absent: pedal edema, joint swelling, calf tenderness Back exam: Present: normal inspection Neurological exam: Present: alert, oriented X3, CN II-XII intact Psychiatric exam: Present: normal affect, normal mood Skin exam: Present: warm, dry, intact, normal color. Absent: rash <Surendra Lacey - Last Filed: 02/18/23 20:21> - General Exam Comments Initial Comments: Visual Physical Exam Vital signs reviewed General: Well-appearing, nontoxic, no acute distress. Head: Normocephalic, atraumatic Eyes: PERRLA, EOMI ENT: Airway patent Chest: Nonlabored breathing Skin: No visual rash, normal skin tone Neuro: Alert and oriented 3 Musculoskeletal: No gross abnormalities (Sukh Fuller) Course <Surendra Lacey - Last Filed: 02/18/23 20:21> Vital Signs 02/13/23 02/13/23 02/13/23 15:49 17:24 18:30 Temperature 98.4 F Pulse Rate 84 60 62 Respiratory 18 18 18 Rate Blood Pressure 100/67 108/63 120/61 O2 Sat by Pulse 100 99 99 Oximetry 02/13/23 20:03 Temperature Pulse Rate 63 Respiratory 18 Rate Blood Pressure 119/75 O2 Sat by Pulse 96 Oximetry - Reevaluation(s) Reevaluation #1: 02/13/23 18:53 Medical record is reviewed (Surendra Lacey) Reevaluation #2: 02/13/23 18:53 Patient symptoms are unchanged (Surendra Lacey) Reevaluation #3: 02/13/23 19:52 Patient informed results questions answered (Surendra Lacey) Reevaluation #4: 02/13/23 19:52 Was pt. sent in by a medical professional or institution (, PA, GIFT SHOP MANAGER, urgent care, hospital, or detention...) When possible be specific @ -no Did you speak to anyone other than the patient for history (EMS, parent, family, police, friend...)? What history was obtained from this source @ -no Did you review nursing and triage notes (agree or disagree)? Why? @ -agree Are old charts reviewed (outside hosp., previous admission, EMS record, old EKG, old radiological studies, urgent care reports/EKG's, detention records)? Report findings @ -yes Differential Diagnosis (chest pain, altered mental status, abdominal pain women, abdominal pain men, vaginal bleeding, weakness, fever, dyspnea, syncope, headache, dizziness, GI bleed, back pain, seizure, CVA, palpatations, mental health, musculoskeletal)? @ -prior EKG interpreted by me (3pts min.). @ -no X-rays interpreted by me (1pt min.). @ -yes CT interpreted by me (1pt min.). @ -no U/S interpreted by me (1pt. min.). @ -yes What testing was considered but not performed or refused? (CT, X-rays, U/S, labs)? Why? @ -none What meds were considered but not given or refused? Why? @ -none Did you discuss the management of the patient with other professionals (professionals i.e. , PA, GIFT SHOP MANAGER, lab, RT, psych nurse, social media sr strategy manager, weapons officer naval activity, teacher, food safety officer, embedded case manager)? Give summary @ -no Was smoking cessation discussed for >3mins.? @ -no Was critical care preformed (if so, how long)? @ -no Were there social determinants of health that impacted care today? How? (Homelessness, low income, unemployed, alcoholism, drug addiction, transportation, low edu. Level, literacy, decrease access to med. care, snf, rehab)? @ -none Was there de-escalation of care discussed even if they declined (Discuss DNR or withdrawal of care, Hospice)? DNR status @ -no What co-morbidities impacted this encounter? (DM, HTN, Smoking, COPD, CAD, Cancer, CVA, ARF, Chemo, Hep., AIDS, mental health diagnosis, sleep apnea, morbid obesity)? @ -none Was patient admitted / discharged? Hospital course, mention meds given and route, prescriptions, significant lab abnormalities, going to OR and other pertinent info. @ - 77 male to the emergency department with left wrist pain and swelling. Patient symptoms could be significant for gout but also could be infectious elevated white blood cell count will place on antibiotics anti-inflammatories and patient can be discharged home Discharge Undiagnosed new problem with uncertain prognosis? @ -no Drug Therapy requiring intensive monitoring for toxicity (Heparin, Nitro, Insulin, Cardizem)? @ -no Were any procedures done? @ -no Diagnosis/symptom? @ -Gout versus cellulitis Acute, or Chronic, or Acute on Chronic? @ -Acute Uncomplicated (without systemic symptoms) or Complicated (systemic symptoms)? @ -Complicated Side effects of treatment? @ -no Exacerbation, Progression, or Severe Exacerbation? @ -exacerbation Poses a threat to life or bodily function? How? (Chest pain, [place], [place], pneumonia, PE, COPD, DKA, ARF, appy, cholecystitis, CVA, Diverticulitis, Homicidal, Suicidal, threat to staff... and all critical care pts) @ -no (Surendra Lacey) Medical Decision Making <Sukh Fuller - Last Filed: 02/13/23 15:55> - Lab Data Result diagrams: 02/13/23 16:34 02/13/23 16:34 - Radiology Data Radiology results: report reviewed (X-ray left wrist and ultrasound are negative for acute disease), image reviewed <Surendra Lacey - Last Filed: 02/18/23 20:21> - Medical Decision Making I performed a quick note portion of the chart signed Sukh Fuller PA-C (Suhk Fuller) 77 male to the emergency department with left wrist pain and swelling. Patient symptoms could be significant for gout but also could be infectious elevated white blood cell count will place on antibiotics anti-inflammatories and patient can be discharged home (Surendra Lacey) - Lab Data Lab Results 02/13/23 02/13/23 02/13/23 Range/Units 16:34 16:34 16:34 WBC 10.7 H (3.8-10.6) k/uL RBC 4.49 (4.30-5.90) m/uL Hgb 12.8 L (13.0-17.5) gm/dL Hct 38.1 L (39.0-53.0) % MCV 84.8 (80.0-100.0) fL MCH 28.5 (25.0-35.0) pg MCHC 33.6 (31.0-37.0) g/dL RDW 14.3 (11.5-15.5) % Plt Count 287 (150-450) k/uL MPV 7.8 Neutrophils % 67 % Lymphocytes % 23 % Monocytes % 8 % Eosinophils % 1 % Basophils % 0 % Neutrophils # 7.1 (1.3-7.7) k/uL Lymphocytes # 2.4 (1.0-4.8) k/uL Monocytes # 0.9 (0-1.0) k/uL Eosinophils # 0.1 (0-0.7) k/uL Basophils # 0.0 (0-0.2) k/uL ESR 105 H (0-20) mm/Hr Sodium 138 (137-145) mmol/L Potassium 4.6 (3.5-5.1) mmol/L Chloride 107 (98-107) mmol/L Carbon Dioxide 23 (22-30) mmol/L Anion Gap 8 mmol/L BUN 32 H (9-20) mg/dL Creatinine 1.37 H (0.66-1.25) mg/dL Est GFR (CKD-EPI)AfAm 57 (>60 ml/min/1.73 sqM) Est GFR (CKD-EPI)NonAf 49 (>60 ml/min/1.73 sqM) Glucose 87 (74-99) mg/dL Plasma Lactic Acid Jack 1.4 (0.7-2.0) mmol/L Uric Acid 8.9 H (3.5-8.5) mg/dL Calcium 9.0 (8.4-10.2) mg/dL Total Bilirubin 1.7 H (0.2-1.3) mg/dL AST 28 (17-59) U/L ALT 18 (4-49) U/L Alkaline Phosphatase 140 H (38-126) U/L C-Reactive Protein 6.8 H (<1.0) mg/dL Total Protein 6.9 (6.3-8.2) g/dL Albumin 3.6 (3.5-5.0) g/dL Disposition <Sukh Fuller - Last Filed: 02/13/23 15:55> Is patient prescribed a controlled substance at d/c from ED?: No <Surendra Lacey - Last Filed: 02/18/23 20:21> Clinical Impression: Left wrist pain, Cellulitis of wrist Disposition: ADMITTED IP TO THIS [facility] Condition: Fair Instructions (If sedation given, give patient instructions): Wrist Injury (ED), Cellulitis (ED) Prescriptions: Cephalexin [Keflex] 500 mg PO Q8HR #21 cap Ibuprofen [Motrin] 600 mg PO Q8HR PRN #20 tab PRN Reason: Pain Referrals: Jett Tyson DO [Primary Care Provider] - 1-2 days
[2023-02-13 16:10] VITALS: RESP 18; TEMP 98.4
[2023-02-13 16:44] LABS: Basophils % (A) 0 %; Eosinophils # (A) 0.1 k/uL (0-0.7); Eosinophils % (A) 1 %; HCT 38.1 % (39.0-53.0); HGB 12.8 gm/dL (13.0-17.5); Lymphocytes # (A) 2.4 k/uL (1.0-4.8); Lymphocytes % (A) 23 %; MCH 28.5 pg (25.0-35.0); MCHC 33.6 g/dL (31.0-37.0); MCV 84.8 fL (80.0-100.0); Mean Platelet Volume 7.8; Monocytes # (A) 0.9 k/uL (0-1.0); Monocytes % (A) 8 %; Neutrophils # (A) 7.1 k/uL (1.3-7.7); Neutrophils % (A) 67 %; Platelet Count 287 k/uL (150-450); RBC 4.49 m/uL (4.30-5.90); RDW 14.3 % (11.5-15.5); WBC 10.7 k/uL (3.8-10.6)
[2023-02-13 17:02] LABS: ALT 18 U/L (4-49); AST 28 U/L (17-59); African American GFR (CKD) 57 (>60 ml/min/1.73 sqM); Albumin 3.6 g/dL (3.5-5.0); Alkaline Phosphatase 140 U/L (38-126); Anion Gap 8 mmol/L; Blood Urea Nitrogen 32 mg/dL (9-20); C Reactive Protein 6.8 mg/dL (<1.0); Carbon Dioxide 23 mmol/L (22-30); Chloride 107 mmol/L (98-107); Glucose 87 mg/dL (74-99); Non-African American GFR(CKD) 49 (>60 ml/min/1.73 sqM); Potassium 4.6 mmol/L (3.5-5.1); Sodium 138 mmol/L (137-145); Total Bilirubin 1.7 mg/dL (0.2-1.3); Total Protein 6.9 g/dL (6.3-8.2); Uric Acid 8.9 mg/dL (3.5-8.5)
[2023-02-13] MEDS ORDERED: DEXAMETHASONE SOD PHOSPHATE 10 MG/ML 1 ML VIAL IVP STA (17:08)
[2023-02-13] MEDS ORDERED: KETOROLAC 15 MG/ML 1 ML VIAL IVP STA (17:08)
--- NOTE | 2023-02-13 17:36 | XR ---
EXAMINATION TYPE: XR wrist complete LT DATE OF EXAM: 02/13/2023 COMPARISON: None HISTORY: Pain TECHNIQUE: 4 view left wrist FINDINGS: No acute fracture or dislocation is evident. Soft tissues appear normal. Some moderately ad vanced degenerative changes noticed at the first carpal metacarpal junction. Follow up exams can be performed 7-10 days from acute trauma for continued pain. Nuclear medicine bon e scan could be performed for pain at the anatomic snuff box. IMPRESSION: 1. No acute osseous abnormality left wrist. 2. Moderate degenerative changes first carpometacarpal junction
--- NOTE | 2023-02-13 18:04 | US ---
EXAMINATION TYPE: US venous doppler duplex UE LT DATE OF EXAM: 02/13/2023 COMPARISON: NONE CLINICAL INDICATION: Male, 77 years old; Redness and swelling in left wrist x 3 days. No hx of DVT. N ot on blood thinners SIDE PERFORMED: Left Grayscale, color doppler, spectral doppler imaging performed of the deep veins of the upper extremiti es. There is normal flow, compressibility and vascular waveforms. Left Arm: No evidence for DVT. Edema noted in wrist IMPRESSION: 1. No evidence of DVT in the left upper extremity. 2. Soft tissue edema in the wrist.
[2023-02-13] MEDS ORDERED: cefTRIAXone IN SWFI 1,000 MG/10 ML SYRINGE IVP STA (19:49)
[2023-02-13 20:20] VITALS: BP 119/75; PULSE 63
--- NOTE | 2023-02-13 20:32 | XR ---
EXAMINATION TYPE: XR chest 1V DATE OF EXAM: 02/13/2023 6:33 PM CLINICAL INDICATION:Male, 77 years old with history of r arm pain; [facility] COMPARISON: Chest radiographs from 08/19/2022 TECHNIQUE: XR chest 1V Frontal view of the chest. FINDINGS: Lines/Tubes/Devices: Stable left arm pacer/AICD Heart/mediastinum: Cardiomediastinal silhouette is stable. Heart size upper limits of normal. A few a ortic calcifications. Pulmonary vascularity: Not increased. Lungs/Pleura: Mild chronic senescent changes. There is no evidence of significant pleural effusion, f ocal consolidation, or pneumothorax. Musculoskeletal: No evidence of an acute bony abnormality. Other findings: None significant. IMPRESSION: No acute cardiopulmonary disease/process.
[2023-02-14 02:54] LABS: Erythrocyte Sedimentation Rate 105 mm/Hr (0-20)
== END 2023-02-13 20:12 | disposition other institution (70) ==
LOC: EC 15:38
DX: M25.532 Pain in left wrist (principal); L03.114 Cellulitis of left upper limb; Z87.891 Personal history of nicotine dependence
CPT/HCPCS: 36415; 80053; 85652; 83605; 84550; 85025; 86140; 73110; 71045; 93971; 99285; 96374; 96375 ×2; J1100; J0696; J1885

== ENCOUNTER → 2023-02-15 | Outpatient (CLI) | payer MEDICARE ==
--- NOTE | 2023-02-18 12:07 | PE ---
EXAMINATION TYPE: PET CT fusion skull to thigh DATE OF EXAM: 02/15/2023 COMPARISON: No recent pertinent comparison Prior PET/CT: No prior PET/CT at this location. HISTORY: Squamous cell carcinoma of head TECHNIQUE: Following the intravenous administration of 10.46 mCi of F-18 FDG, whole body images are performed from the skull base to the midthigh. Images are reviewed on the computer in the coronal, a xial, and sagittal planes. Reconstructed rotating images are created on independent workstation and reviewed on the computer. A localization and attenuation correction CT is performed in conjunction with the PET scan. DLP: 739.28 mGycm SCAN: Initial Blood glucose: 86 mg/dL Average Mediastinum SUV: 2.26 Average Liver SUV: 2.91 FINDINGS: HEAD: There is a focus of radiotracer at the vertex, image 7 just left of midline with SUV of 4.95. N eoplasm should be considered. There is some mild uptake along the skin surface of the right frontal region. Correlate for cutaneous abnormality or surgery at this site. Example image 33, SUV 5.91. There is some focal uptake along the bridge of the nose, image 55 with an SUV of 4.99. No obvious intracranial abnormal uptake identified. NECK: No abnormal uptake THORAX: No abnormal uptake ABDOMEN: No abnormal uptake PELVIS: No abnormal uptake OSSEOUS STRUCTURES: There is scattered areas of uptake within the superior acetabulum and femoral hea d. This is likely related to advanced degenerative change. LOCALIZATION CT: No suspicious findings. Chronic degenerative changes are noted within the cervical s pine. Calcifications in the anterior right upper lung field. Cholelithiasis is present. COMPARISON: None IMPRESSION: 1. Broad area of uptake along the right frontal region. Correlate for location of patient's known squ amous cell carcinoma and postsurgical changes. 2. There is a focus of radiotracer at the vertex. A neoplastic lesion at this level may be present. 3. Uptake along the anterior bridge of the nose. Correlate for neoplasm. 4. Incidental note made of cholelithiasis.
== END | disposition home or self-care (01) ==
LOC: RADPETMAIN 14:57
PROVIDERS: ATTEND Internal Medicine Hematology & Oncology
DX: C44.329 Squamous cell carcinoma of skin of other parts of face (principal)
CPT/HCPCS: 78815; A9552

== ENCOUNTER → 2023-08-01 | Outpatient (CLI) | payer MEDICARE ==
[2023-08-01 12:45] LABS: African American GFR (CKD) 39 (>60 ml/min/1.73 sqM); Blood Urea Nitrogen 42 mg/dL (9-20); Non-African American GFR(CKD) 34 (>60 ml/min/1.73 sqM)
--- NOTE | 2023-08-03 16:47 | CT ---
EXAMINATION TYPE: CT soft tissue neck wo con DATE OF EXAM: 08/01/2023 COMPARISON: Head CT 02/15/2023 HISTORY: hx of skin ca on head and neck. CT DLP: 431.40 mGycm CONTRAST: None TECHNIQUE: Axial images at 3 mm thick sections. Reconstructed images in the coronal plane and sagitt al plane are reviewed. FINDINGS: Limited CT sections are obtained the lung apices. The lung apices appear clear. CT neck: The torus tubarius and fossa of Rosenmuller are normal. Soap Chipper spaces are normal. Para nasal sinuses and mastoid air cells are clear. Parotid glands appear normal and symmetrical. Submandibular glands, are normal. Parapharyngeal spac es are normal. No suspicious adenopathy is evident. The hypopharynx appears within normal limits. Vocal cord level appear symmetrical. Thyroid as visualized is normal. IMPRESSION: 1. There appears to be right frontal soft tissue changes. No suspicious masslike areas to correlate w ith the PET/CT.
== END | disposition home or self-care (01) ==
LOC: RADCTMAIN 11:54
PROVIDERS: ATTEND Radiology Radiation Oncology
DX: C44.42 Squamous cell carcinoma of skin of scalp and neck (principal); C44.329 Squamous cell carcinoma of skin of other parts of face; Z87.891 Personal history of nicotine dependence
CPT/HCPCS: 36415; 70490; 82565; 84520

== ENCOUNTER 2023-10-26 16:53 | Emergency (ER) | payer MEDICARE ==
--- NOTE | 2023-10-26 17:15 | ED ---
Recheck HPI - General Source: patient, RN notes reviewed Mode of arrival: ambulatory Limitations: no limitations <Preethi Mauricio - Last Filed: 10/26/23 17:13> - General Source: patient, RN notes reviewed, old records reviewed <Charlie Silva - Last Filed: 10/26/23 21:02> - General Chief Complaint: Recheck/Abnormal Lab/Rx Stated Complaint: Abnormal Labs-Sent by Dr Time Seen by Provider: 10/26/23 17:12 - History of Present Illness Initial Comments: Quick Note-this is a 78-year-old male presents emergency department complaint of abnormal labs. Patient states that he had blood work obtained this morning with a CVA and was ordered to report to the emergency department for a elevated potassium. Patient denies history of having hyperkalemia. He denies symptoms of muscle weakness, confusion, chest pain, heart palpitations dizziness or lightheadedness. Patient has a pacemaker in place, denies blood thinner use. Is on Lasix. (Preethi Mauricio) Originally seen as a quick note. Briefly, patient is a 78-year-old male with past medical history remarkable for cancer, CKD, with a pacemaker who is on Lasix presents emergency department concern for hyperkalemia seen on outpatient labs. Patient has no symptoms. This is never occurred before. Denies any nausea, vomiting, diarrhea. Denies any abdominal pain. Denies any urinary changes. Presents for further evaluation at this time. Chest pain, shortness of breath, cough, fevers. (Charlie Silva) - Related Data Home Medications Medication Instructions Recorded Confirmed Atorvastatin [Lipitor] 20 mg PO DAILY 06/16/21 10/26/23 Metoprolol Succinate (ER) [Toprol 25 mg PO DAILY 08/19/22 10/26/23 XL] Valsartan [Diovan] 80 mg PO DAILY 08/19/22 10/26/23 Previous Rx's Medication Instructions Recorded Furosemide [Lasix] 40 mg PO DAILY tab 08/25/22 Allergies Allergy/AdvReac Type Severity Reaction Status Date / Time No Known Allergies Allergy Verified 10/26/23 19:10 Review of Systems ROS Other: All systems not noted in ROS Statement are negative. <Preethi Mauricio - Last Filed: 10/26/23 17:13> ROS Other: All systems not noted in ROS Statement are negative. <Charlie Silva - Last Filed: 10/26/23 21:02> ROS Statement: Those systems with pertinent positive or pertinent negative responses have been documented in the HPI. Review of Systems: CONST: Denies fever EYES: Denies blurry vision ENT: Denies nasal congestion C/V: Denies Chest pain RESP: Denies shortness of breath GI: Denies abdominal pain : Denies dysuria SKIN: Denies rash. MSK: Denies joint pain. NEURO: Denies headache (Charlie Silva) Past Medical History Past Medical History: Cancer Additional Past Medical History / Comment(s): Skin cancer on face. Swelling in feet, calves and knees, skin cancer, History of Any Multi-Drug Resistant Organisms: None Reported Past Surgical History: Joint Replacement Additional Past Surgical History / Comment(s): right hip replacement, cataracts removed. Past Anesthesia/Blood Transfusion Reactions: No Reported Reaction Type of Cardiac Device: Permanent Pacemaker Device Placement Date:: 06/20/21 Past Psychological History: No Psychological Hx Reported Smoking Status: Former smoker Past Alcohol Use History: None Reported Past Drug Use History: None Reported - Past Family History Mother Family Medical History: No Reported History <Preethi Mauricio - Last Filed: 10/26/23 17:13> General Exam Limitations: no limitations <Preethi Mauricio - Last Filed: 10/26/23 17:13> <Charlie Silva - Last Filed: 10/26/23 21:02> - General Exam Comments Initial Comments: Visual Physical Exam Vital signs reviewed General: Well-appearing, nontoxic, no acute distress. Head: Normocephalic, atraumatic Eyes: PERRLA, EOMI ENT: Airway patent Chest: Nonlabored breathing Skin: No visual rash, normal skin tone Neuro: Alert and oriented 3 Musculoskeletal: No gross abnormalities (Preethi Mauricio) General: Appears in no acute distress. HEAD: Normal with no signs of head trauma. EYES: PERRLA, EOMI, conjunctiva normal, no discharge. ENT: Hearing grossly intact, normal oropharynx. RESPIRATORY: Clear breath sounds bilaterally. No wheezes, rales, or rhonchi. C/V: Regular rate and rhythm. S1 and S2 auscultated, no edema, peripheral pulses 2+ and intact throughout ABD: Abd is soft, nontender, nondistended EXT: Normal range of motion, no obvious deformity SKIN: No rashes or lesions observed on exposed skin. NEURO: Alert and oriented x 4. (Charlie Silva) Course Vital Signs 10/26/23 10/26/23 10/26/23 17:05 17:58 18:09 Temperature 97.5 F L Pulse Rate 67 66 Respiratory 18 18 Rate Blood Pressure 107/61 91/60 106/62 O2 Sat by Pulse 99 97 Oximetry 10/26/23 19:47 Temperature 97.6 F Pulse Rate 66 Respiratory 16 Rate Blood Pressure 110/60 O2 Sat by Pulse 98 Oximetry Medical Decision Making <Preethi Mauricio - Last Filed: 10/26/23 17:13> - Lab Data Result diagrams: 10/26/23 18:04 10/26/23 18:04 - EKG Data -: EKG Interpreted by Me <Charlie Silva - Last Filed: 10/26/23 21:02> - Medical Decision Making I completed the quick note portion of this chart signed Preethi Mauricio PA-C (Preethi Mauricio) Was pt. sent in by a medical professional or institution (VALERIE Hung, MANAGING ATTORNEY, urgent care, hospital, or prison...) When possible be specific @ -No Did you speak to anyone other than the patient for history (EMS, parent, family, police, friend...)? What history was obtained from this source @ -No Did you review nursing and triage notes (agree or disagree)? Why? @ -I reviewed and agree with nursing and triage notes Were old charts reviewed (outside hosp., previous admission, EMS record, old EKG, old radiological studies, urgent care reports/EKG's, prison records)? Report findings @ -No old charts were reviewed Differential Diagnosis (chest pain, altered mental status, abdominal pain women, abdominal pain men, vaginal bleeding, weakness, fever, dyspnea, syncope, headache, dizziness, GI bleed, back pain, seizure, CVA, palpatations, mental health, musculoskeletal)? @ -Hyperkalemia, CKD, DEISY, dehydration. This list is not all inclusive. EKG interpreted by me (3pts min.). @ -As above X-rays interpreted by me (1pt min.). @ -None done CT interpreted by me (1pt min.). @ -None done U/S interpreted by me (1pt. min.). @ -None done What testing was considered but not performed or refused? (CT, X-rays, U/S, l abs)? Why? @ -None What meds were considered but not given or refused? Why? @ -None Did you discuss the management of the patient with other professionals (professionals i.e. , PA, MANAGING ATTORNEY, lab, RT, psych nurse, social worker school, taper/finisher, teacher, air support control officer, oil field caser)? Give summary @ -No Was smoking cessation discussed for >3mins.? @ -No Was critical care preformed (if so, how long)? @ -No Were there social determinants of health that impacted care today? How? (Homelessness, low income, unemployed, alcoholism, drug addiction, transportation, low edu. Level, literacy, decrease access to med. care, intermediate, rehab)? @ -No Was there de-escalation of care discussed even if they declined (Discuss DNR or withdrawal of care, Hospice)? DNR status @ -No What co-morbidities impacted this encounter? (DM, HTN, Smoking, COPD, CAD, Cancer, CVA, ARF, Chemo, Hep., AIDS, mental health diagnosis, sleep apnea, morbid obesity)? @ -None Was patient admitted / discharged? Hospital course, mention meds given and route, prescriptions, significant lab abnormalities, going to OR and other pertinent info. @ -Based on the patient's presentation and physical exam, patient presents emergency department for repeat lab draw. Apparently patient was hyperkalemic on outpatient labs and was sent here for further evaluation. Not able to see these labs and therefore we will obtain repeat labs. Patient does have history of CKD. Has no acute complaints at this time. Vital signs within acceptable limits. EKG shows no evidence of acute ischemic process or hyperkalemia changes. Laboratory studies returned remarkable for CKD with kidney function within normal limits for the patient. Patient is mildly hyperkalemic to 5.2. I did recommend IV fluids at this time however patient declined. He is in a greement with a dose of Lokelma and will follow-up with his PCP for further lab draw. He would like to leave. He was in agreement this plan otherwise. I instructed the patient to follow up with their PCP in the next 1-3 days. I explained that the patient should return to the emergency department if they experience any worsening symptoms. Strict return precautions were discussed with the patient. The patient expressed understanding of these instructions. I answered all questions that the patient had. The patient was discharged home in good condition with their prescriptions and follow up information. Undiagnosed new problem with uncertain prognosis? @ -No Drug Therapy requiring intensive monitoring for toxicity (Heparin, Nitro, Insulin, Cardizem)? @ -No Were any procedures done? @ -No Diagnosis/symptom? @ -CKD, mild hyperkalemia Acute, or Chronic, or Acute on Chronic? @ -Acute Uncomplicated (without systemic symptoms) or Complicated (systemic symptoms)? @ -Uncomplicated Side effects of treatment? @ -No Exacerbation, Progression, or Severe Exacerbation? @ -No Poses a threat to life or bodily function? How? (Chest pain, USA, MD, pneumonia, PE, COPD, DKA, ARF, appy, cholecystitis, CVA, Diverticulitis, Homicidal, Suicidal, threat to staff... and all critical care pts) @ -Unlikely in the short-term (Charlie Silva) - Lab Data Lab Results 10/26/23 10/26/23 Range/Units 18:04 18:04 WBC 6.1 (3.8-10.6) k/uL RBC 4.53 (4.30-5.90) m/uL Hgb 13.2 (13.0-17.5) gm/dL Hct 39.8 (39.0-53.0) % MCV 87.8 (80.0-100.0) fL MCH 29.0 (25.0-35.0) pg MCHC 33.1 (31.0-37.0) g/dL RDW 14.1 (11.5-15.5) % Plt Count 200 (150-450) k/uL MPV 7.2 Neutrophils % 49 % Lymphocytes % 40 % Monocytes % 8 % Eosinophils % 1 % Basophils % 0 % Neutrophils # 3.0 (1.3-7.7) k/uL Lymphocytes # 2.5 (1.0-4.8) k/uL Monocytes # 0.5 (0-1.0) k/uL Eosinophils # 0.0 (0-0.7) k/uL Basophils # 0.0 (0-0.2) k/uL Sodium 138 (137-145) mmol/L Potassium 5.2 H (3.5-5.1) mmol/L Chloride 108 H (98-107) mmol/L Carbon Dioxide 23 (22-30) mmol/L Anion Gap 7 mmol/L BUN 52 H (9-20) mg/dL Creatinine 1.85 H (0.66-1.25) mg/dL Est GFR (CKD-EPI)AfAm 39 (>60 ml/min/1.73 sqM) Est GFR (CKD-EPI)NonAf 34 (>60 ml/min/1.73 sqM) Glucose 92 (74-99) mg/dL Calcium 8.8 (8.4-10.2) mg/dL Phosphorus 3.9 (2.5-4.5) mg/dL Magnesium 2.1 (1.6-2.3) mg/dL Total Bilirubin 1.8 H (0.2-1.3) mg/dL AST 43 (17-59) U/L ALT 33 (4-49) U/L Alkaline Phosphatase 143 H (38-126) U/L Total Protein 6.7 (6.3-8.2) g/dL Albumin 3.9 (3.5-5.0) g/dL - EKG Data EKG Comments: 12-lead Electrocardiogram Interpretation Note EKG was reviewed and interpreted by myself. 12-lead ECG performed at 1745 is interpreted by me as revealing paced rhythm at a rate of 60 beats per minute. Indeterminate axis. VT interval is 247 ms, QRS durations 173 ms, QTc is 493 ms.. There were no ST or T wave abnormalities to suggest myocardial ischemia or injury. R wave progression across the precordium was delayed. By my interpret ation this EKG is non-diagnostic for acute ischemia. (Charlie Silva) Disposition <Preethi Mauricio - Last Filed: 10/26/23 17:13> Is patient prescribed a controlled substance at d/c from ED?: No Time of Disposition: 19:36 <Charlie Silva - Last Filed: 10/26/23 21:02> Clinical Impression: CKD (chronic kidney disease), Hyperkalemia Disposition: HOME SELF-CARE Condition: Good Instructions (If sedation given, give patient instructions): Hyperkalemia (ED) Additional Instructions: follow-up with PCP for repeat lab work next weeks. Referrals: Jett Tyson DO [Primary Care Provider] - 1-2 days
[2023-10-26 18:00] VITALS: PULSE 66
[2023-10-26 18:23] LABS: Basophils % (A) 0 %; Eosinophils % (A) 1 %; HCT 39.8 % (39.0-53.0); HGB 13.2 gm/dL (13.0-17.5); Lymphocytes # (A) 2.5 k/uL (1.0-4.8); Lymphocytes % (A) 40 %; MCHC 33.1 g/dL (31.0-37.0); MCV 87.8 fL (80.0-100.0); Mean Platelet Volume 7.2; Monocytes # (A) 0.5 k/uL (0-1.0); Monocytes % (A) 8 %; Neutrophils % (A) 49 %; Platelet Count 200 k/uL (150-450); RBC 4.53 m/uL (4.30-5.90); RDW 14.1 % (11.5-15.5); WBC 6.1 k/uL (3.8-10.6)
[2023-10-26 19:20] LABS: ALT 33 U/L (4-49); AST 43 U/L (17-59); African American GFR (CKD) 39 (>60 ml/min/1.73 sqM); Albumin 3.9 g/dL (3.5-5.0); Alkaline Phosphatase 143 U/L (38-126); Anion Gap 7 mmol/L; Blood Urea Nitrogen 52 mg/dL (9-20); Calcium 8.8 mg/dL (8.4-10.2); Carbon Dioxide 23 mmol/L (22-30); Chloride 108 mmol/L (98-107); Glucose 92 mg/dL (74-99); Magnesium 2.1 mg/dL (1.6-2.3); Non-African American GFR(CKD) 34 (>60 ml/min/1.73 sqM); Phosphorus 3.9 mg/dL (2.5-4.5); Potassium 5.2 mmol/L (3.5-5.1); Sodium 138 mmol/L (137-145); Total Bilirubin 1.8 mg/dL (0.2-1.3); Total Protein 6.7 g/dL (6.3-8.2)
[2023-10-26] MEDS ORDERED: SODIUM CHLORIDE 0.9% 500 ML 500 ML IV STA (19:22)
[2023-10-26] MEDS: SODIUM ZIRCONIUM CYCLOSILICATE 10 GM PACKET PO ONE (19:36)
[2023-10-26 19:48] VITALS: BP 110/60; RESP 16; TEMP 97.6
== END 2023-10-26 19:48 | disposition home or self-care (01) ==
LOC: EC 16:53
DX: E87.5 Hyperkalemia (principal); N18.9 Chronic kidney disease, unspecified; Z87.891 Personal history of nicotine dependence
CPT/HCPCS: 36415; 80053; 83735; 84100; 85025; 93005; 99283

== ENCOUNTER → 2024-02-08 | Outpatient (CLI) | payer MEDICARE ==
--- NOTE | 2024-02-11 06:59 | PE ---
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 Images are reviewed on the computer in the coronal, axial, and sagittal planes. Reconstructed rotating images are created on independent workstation and reviewed on the computer. A non-contrast CT is performed in conjunction with the PET scan. Glucose level 77 mg/dL CT DLP: 791.31 mGycm, Automated exposure control for dose reduction was used. COMPARISON: CT 08/01/2023, PET/CT 02/15/2023, MRI: None FINDINGS: Mediastinal SUV mean is 2.4. Hepatic parenchyma SUV mean is 2.8. SKULL BASE AND NECK: Previously seen radiotracer uptake along the right frontal scalp region is no longer visualized. Post surgical changes identified in this region. There is again radiotracer uptake along the anterior bridge of the nose with a max SUV of 7.0, previo usly 4.9. No CT evidence of significant abnormality. Region of focal radiotracer uptake along the medial aspect of the right anterior scleral globe region with a maximum SUV of 6.7. No CT evidence of significant abnormality. Region of focal radiotracer uptake identified within the right aspect of the soft palate posteriorly with a max SUV of 6.5. No CT evidence of significant abnormality. CHEST, MEDIASTINUM, AND HILAR REGION: No suspicious radiotracer activity. ABDOMEN AND PELVIS: No suspicious radiotracer activity. MUSCULOSKELETAL STRUCTURES: No suspicious radiotracer activity. OTHER CT: Bilateral aphakia. Left chest wall 3-lead cardiac pacemaker device. Small coronary calcific ations. Calcific granuloma within the right upper lobe. Cholelithiasis. Bilateral perinephric fat str anding. Mild atherosclerotic calcification of the aorta and its branches. Tiny fat filled umbilical h ernia. Distal colon diverticulosis. Fat filled bilateral infrahilar areas. Mildly enlarged prostate g land measuring 5.0 cm in transverse dimension. Central prostate calcifications. Multilevel degenerati ve changes visualized spine. Bilateral AC joint arthropathy with right greater than left. Degenerativ e changes of the bilateral SI joints with right greater than left. Mild centrilobular emphysema tan es. Bibasilar dependent subsegmental atelectasis. 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 IMPRESSION: 1. Postoperative changes with no residual radiotracer activity within the right frontal/scalp region . 2. Redemonstration of focal radiotracer uptake along the anterior bridge the nose. No CT evidence of abnormality. Correlate for possible neoplasm versus physiologic uptake. 3. Development of focal radiotracer uptake along the medial aspect of the right anterior scleral lazaro be. No CT evidence of abnormality. Correlate for possible neoplasm versus physiologic uptake. 4. Focal radiotracer uptake along the right aspect of the posterior soft palate. No CT evidence of a bnormality. Correlate for possible neoplasm versus physiologic uptake. [facility], , 02/11/2024 6:57 AM
== END | disposition home or self-care (01) ==
LOC: RADPETMAIN 13:29
PROVIDERS: ATTEND Radiology Radiation Oncology
DX: C44.42 Squamous cell carcinoma of skin of scalp and neck (principal); C44.329 Squamous cell carcinoma of skin of other parts of face; J43.2 Centrilobular emphysema; M19.011 Primary osteoarthritis, right shoulder; M19.012 Primary osteoarthritis, left shoulder; M16.0 Bilateral primary osteoarthritis of hip; K57.30 Diverticulosis of large intestine without perforation or abscess without bleeding; N40.0 Benign prostatic hyperplasia without lower urinary tract symptoms; I70.0 Atherosclerosis of aorta; H27.03 Aphakia, bilateral; K42.9 Umbilical hernia without obstruction or gangrene; Z87.891 Personal history of nicotine dependence
CPT/HCPCS: 78815; A9552